=== PATIENT | female | born 1955 | race African-American/Black ===

== ENCOUNTER 2016-12-21 14:32 | Emergency (ER) | payer MEDICAID, OTHER ==
[~2016-12-21] VITALS: Ht 154.9 cm; Wt 40.8 kg
[~2016-12-21 14:32] MED LIST: ACETAMINOPHEN-1 EAC1 ORAL; ALBUTEROL SULF8.5 GM INH; AMBIEN5 MG ORAL; ASPIR 8181 MG ORAL; ATIVAN1 MG ORAL; BACITRACIN1 APPLIC TOPIC; BACTRIM-DS1 EA ORAL; BENAZEPRIL HCL10 MG ORAL; BENAZEPRIL HCL20 MG ORAL; CLINDAMYCIN HC300 MG ORAL; FERROUS SULFAT325 MG ORAL; GUAIFENESIN-DM S5 ML PO; LEVAQUIN750 MG ORAL; LOTENSIN20 MG ORAL; MECLIZINE HCL25 MG ORAL; NKM; NORCO 5-325 TA1 EACH ORAL; PREDNISONE20 MG ORAL; PROTONIX40 MG ORAL; REGLAN5 MG ORAL; TRAMADOL HCL50 MG ORAL; TYLENOL EXTRA500 MG ORAL; ZOFRAN4 M1 ORAL
[2016-12-21] MEDS ORDERED: Morphine Sulfate 4mg/ml Inj IVP ONE (14:45)
[2016-12-21 15:05] VITALS: BP 179/99
[2016-12-21 15:19] LABS: MEAN CORPUSCULAR HEMOGLOBIN 30.7 PG (27.0-31.0); MEAN CORPUSCULAR HGB CONC 32.9 G/DL (32.0-36.0); MEAN CORPUSCULAR VOLUME 93 FL (80-99); MEAN PLATELET VOLUME 11.8 FL (6.5-10.1); PLATELET COUNT 65 K/UL (150-450); RED CELL DISTRIBUTION WIDTH 13.6 % (11.6-14.8); WHITE BLOOD COUNT 4.8 K/UL (4.8-10.8)
[2016-12-21 16:00] LABS: APPEARANCE,URINE CLEAR; KETONES,URINE NEGATIVE (NEGATIVE); LEUKOCYTE ESTERASE ,URINE NEGATIVE (NEGATIVE); NITRITE,URINE NEGATIVE (NEGATIVE); PH,URINE 6 (4.5-8.0); PROTEIN,URINE 1+ (NEGATIVE); UROBILINOGEN,URINE NORMAL MG/DL (0.0-1.0)
[2016-12-21 16:26] LABS: RBC,URINE 0 /HPF (0 - 2); SQUAMOUS EPITHELIAL CELL,UR OCCASIONAL /LPF (NONE/OCC); WBC,URINE 0-2 /HPF (0 - 2)
[2016-12-21 16:37] LABS: BAND NEUTROPHILS % (MANUAL) 0 % (0-8); BASOPHILS % (MANUAL) 1 % (0-2); EOSINOPHILS % (MANUAL) 0 % (0-3); LYMPHOCYTES % (MANUAL) 26 % (20-45); NEUTROPHILS % (MANUAL) 67 % (45-75); NUCLEATED RED BLOOD CELLS 1 /100 WBC; PLATELET CLUMPS 3+; TOTAL CELLS COUNTED 100
[2016-12-21 16:44] LABS: PLATELET ESTIMATE ADEQUATE
--- NOTE | 2016-12-21 16:54 | Emergency Room Report ---
History of Present Illness General Chief Complaint: Abdominal Pain Source: Patient Present Illness HPI 61-year-old female presents ED for abdominal pain. States symptoms started today. Pain is localized to lower abdomen radiating through epigastric area. 7 out of 10. Sharp. No aggravating or leading factors. Denies nausea or vomiting. Denies chest pain or shortness of breath. Denies fevers or chills. Denies sick contacts or recent travel. No other aggravating or relieving factors. Denies any other associated symptoms Allergies: Coded Allergies: PENICILLINS (Unverified Allergy, Severe, 10/20/13) ERYTHROMYCIN BASE (Verified Allergy, Unknown, 12/27/12) IBUPROFEN (Unverified Allergy, Unknown, 07/30/14) KETOROLAC (Verified Allergy, Unknown, 12/27/12) ZOLPIDEM (Unverified Allergy, Unknown, 12/21/16) Patient History Past Medical History: HTN, COPD, GERD Past Surgical History: none Pertinent Family History: none Social History: Denies: alcohol use, drug use, smoking Now: No Immunizations: UTD Reviewed Nursing Documentation: PMH: Agreed, PSxH: Agreed Nursing Documentation-PMH Past Medical History: No History, Except For Hx Hypertension: Yes Hx COPD: Yes Hx Gastrointestinal Problems: Yes - ulcers gastritis Hx Neurological Problems: Yes - fibromyalgia Review of Systems All Other Systems: negative except mentioned in HPI Physical Exam Vital Signs Date Time Temp Pulse Resp B/P Pulse Ox O2 Delivery O2 Flow Rate FiO2 12/21/16 14:27 98.4 80 18 145/105 98 Room Air Sp02 EP Interpretation: reviewed, normal General Appearance: no apparent distress, alert, GCS 15, non-toxic, thin Head: normocephalic Eyes: bilateral eye PERRL, bilateral eye normal inspection ENT: normal ENT inspection Neck: normal inspection Respiratory: chest non-tender, lungs clear, normal breath sounds, speaking full sentences Cardiovascular #1: regular rate, rhythm, no edema Gastrointestinal: normal bowel sounds, soft, non-distended, no guarding, no rebound, tenderness - lower abdomen, epigastric Rectal: deferred Genitourinary: no CVA tenderness Musculoskeletal: normal inspection Neurologic: alert, oriented x3, responsive, motor strength/tone normal, sensory intact, speech normal Psychiatric: normal inspection Skin: normal inspection Lymphatic: normal inspection Medical Decision Making Diagnostic Impression: Primary Impression: Gastritis Qualified Codes: K29.50 - Unspecified chronic gastritis without bleeding Additional Impression: Chronic pain Qualified Codes: G89.29 - Other chronic pain ER Course Hospital Course 61-year-old F presents to ED with epigastric pain and lower abd pain Differential diagnosis includes-appendicitis, cholecystitis, small bowel obstruction, gastritis, Clinical course Patient placed on stretcher. After initial history and physical I ordered labs , IV fluids, pain medications, pepcid and CT scan Labs - no leukocytosis, electrolytes ok, LFTs normal, UA unremarkable CT scan shows no acute pathology Upon reassessment, patient states pain has improved. Patient has history of gastritis. Given improvement in symptoms and lack of acute findings, I believe patient can be safely discharged to home. Patient agrees with plan I feel this is a highly complex case requiring extensive working including EKG/ Rhythm strip, Xray/CT/US, Blood/urine lab work, repeat exams while in ED, and administration of strong opiates/narcotics for pain control, admission to hospital or close patient follow up. Diagnosis - gastritis, chronic pain Stable and discharged to home with Rx Zofran, Protonix. Followup with PMD. Return to ED if symptoms recur or worsen Labs Test 12/21/16 14:57 12/21/16 15:09 12/21/16 16:26 White Blood Count 4.8 K/UL (4.8-10.8) Red Blood Count 4.90 M/UL (4.20-5.40) Hemoglobin 15.0 G/DL (12.0-16.0) Hematocrit 45.6 % (37.0-47.0) Mean Corpuscular Volume 93 FL (80-99) Mean Corpuscular Hemoglobin 30.7 PG (27.0-31.0) Mean Corpuscular Hemoglobin Concent 32.9 G/DL (32.0-36.0) Red Cell Distribution Width 13.6 % (11.6-14.8) Platelet Count 65 K/UL (150-450) Mean Platelet Volume 11.8 FL (6.5-10.1) Neutrophils (%) (Auto) % (45.0-75.0) Lymphocytes (%) (Auto) % (20.0-45.0) Monocytes (%) (Auto) % (1.0-10.0) Eosinophils (%) (Auto) % (0.0-3.0) Basophils (%) (Auto) % (0.0-2.0) Differential Total Cells Counted 100 Neutrophils % (Manual) 67 % (45-75) Lymphocytes % (Manual) 26 % (20-45) Monocytes % (Manual) 6 % (1-10) Eosinophils % (Manual) 0 % (0-3) Basophils % (Manual) 1 % (0-2) Band Neutrophils 0 % (0-8) Nucleated Red Blood Cells 1 /100 WBC Platelet Estimate Adequate Platelet Morphology Clumped Platelets 3+ Red Blood Cell Morphology Normal Urine Color Pale yellow Urine Appearance Clear Urine pH 6 (4.5-8.0) Urine Specific Harvey 1.010 (1.005-1.035) Urine Protein 1+ (NEGATIVE) Urine Glucose (UA) Negative (NEGATIVE) Urine Ketones Negative (NEGATIVE) Urine Occult Blood Negative (NEGATIVE) Urine Nitrite Negative (NEGATIVE) Urine Bilirubin Negative (NEGATIVE) Urine Urobilinogen Normal MG/DL (0.0-1.0) Urine Leukocyte Esterase Negative (NEGATIVE) Urine RBC 0 /HPF (0 - 2) Urine WBC 0-2 /HPF (0 - 2) Urine Squamous Epithelial Cells Occasional /LPF Urine Bacteria None /HPF (NONE) Sodium Level 142 mEQ/L (135-145) Potassium Level 3.3 mEQ/L (3.4-4.9) Chloride Level 104 mEQ/L (98-107) Carbon Dioxide Level 22 mEQ/L (20-30) Anion Gap 16 (5-15) Blood Urea Nitrogen 9 mg/dL (7-23) Creatinine 0.7 mg/dL (0.5-0.9) Estimat Glomerular Filtration Rate > 60 mL/min (>60) Glucose Level 138 mg/dL (74-106) Calcium Level 8.0 mg/dL (8.6-10.2) Total Bilirubin < 0.2 mg/dL (0.0-1.2) Aspartate Amino Transf (AST/SGOT) 27 U/L (5-40) Alanine Aminotransferase (ALT/SGPT) 29 U/L (3-33) Alkaline Phosphatase 62 U/L (35-104) Creatine Kinase MB 2.3 ng/mL (< 3.8) Troponin I < 0.30 ng/mL (<=0.30) Total Protein 6.6 g/dL (6.6-8.7) Albumin 3.7 g/dL (3.5-5.2) Globulin 2.9 g/dL Albumin/Globulin Ratio 1.2 (1.0-2.7) Lipase 39 U/L (< 60) EKG Diagnostic Results Rate: normal Rhythm: NSR ST Segments: no acute changes ASA given to the pt in ED: No Rhythm Strip Diag. Results EP Interpretation: yes Rhythm: NSR, no PVC's, no ectopy CT/MRI/US Diagnostic Results CT/MRI/US Diagnostic Results : Imaging Test Ordered: CT A/P Impression no acute process Last Vital Signs Date Time Temp Pulse Resp B/P Pulse Ox O2 Delivery O2 Flow Rate FiO2 12/21/16 15:43 98.5 12/21/16 15:05 76 14 179/99 99 Room Air Status: improved Disposition: HOME, SELF-CARE Condition: Stable Scripts Ondansetron Odt* (ZOFRAN ODT*) 4 Mg Tab.rapdis 4 MG ORAL Q6H Y for Nausea & Vomiting, #30 TAB 0 Refills Prov: FARIDEH GARZA M.D. 12/21/16 Pantoprazole* (PROTONIX*) 40 Mg Tablet. 40 MG ORAL DAILY, #30 TAB Prov: FARIDEH GARZA M.D. 12/21/16 FARIDEH GARZA M.D. Dec 21, 2016 16:54
[2016-12-21] MEDS ORDERED: Famotidine 20 MG/ 2ML VIAL IVP ONE (17:00)
[2016-12-21 17:04] LABS: TROPONIN I < 0.30 ng/mL (<=0.30)
[2016-12-21 17:05] LABS: ALANINE AMINOTRANSFERASE 29 U/L (3-33); ALBUMIN/GLOBULIN RATIO 1.2 (1.0-2.7); ANION GAP 16 (5-15); ASPARTATE AMINO TRANSFERASE 27 U/L (5-40); CARBON DIOXIDE 22 mEQ/L (20-30); CHLORIDE 104 mEQ/L (98-107); CREATININE 0.7 mg/dL (0.5-0.9); GLOMERULAR FILTRATION RATE > 60 mL/min (>60); HEMOLYSIS 6; LIPASE 39 U/L (< 60); POTASSIUM 3.3 mEQ/L (3.4-4.9); SODIUM 142 mEQ/L (135-145); TOTAL PROTEIN 6.6 g/dL (6.6-8.7)
[2016-12-21 17:06] VITALS: BP 179/98
[2016-12-21 17:15] LABS: CKMB 2.3 ng/mL (< 3.8)
[2016-12-21] MEDS ORDERED: ZOFRAN ODT4 MG ORAL (18:15)
[2016-12-21] MEDS ORDERED: PROTONIX40 MG ORAL (18:15)
[2016-12-21 18:31] VITALS: BP 149/88
--- NOTE | 2016-12-22 14:22 | Diagnostic Imaging Report ---
Clinical Indication: Epigastric and lower abdominal pain Technique: Patient given oral contrast. IV administration nonionic contrast. Venous phase spiral acquisition obtained through the abdomen and pelvis. Multiplanar reconstructions were generated. Total dose length product 520 mGycm. CTDIvol(s) lung mGy. Dose reduction achieved using automated exposure control Comparison: 04/24/2007 Findings: What might be a normal appendix is equivocally identified, best seen on the coronal images. No findings to suggest acute appendicitis are evident. No evidence of diverticulosis or diverticulitis. Oral contrast does traverse the entirety of the small bowel, and is seen as far distally the distal transverse colon. No small bowel distention. No small bowel wall thickening. No free or loculated intraperitoneal air or fluid is evident. The distal esophagus, stomach, duodenum are unremarkable. The gallbladder is unremarkable. There is mild ectasia of the common bile duct, which measures 7 mm diameter. This is unchanged. The liver, pancreas, spleen, are unremarkable. The right kidney demonstrates an interpolar region cysts as well as subcentimeter low-attenuation lesions which are too small to characterize. There is some scarring of the right kidney. Apparent areas of abnormal perfusion in the both kidneys may just be related to the phase of the exam, although areas of focal nephritis not excludable. No retroperitoneal or mesenteric mass or adenopathy. No pelvic mass or adenopathy. The bladder is distended. Uterus and adnexal structures are unremarkable. There is atelectasis or scarring at the right lung base. The bones demonstrate progressive degenerative changes at the lumbosacral junction as well as sacral nerve root sleeve cysts Impression: No acute process Distended bladder, urinary retention or obstruction not completely excludable. Questionable abnormal perfusion in the the kidneys, most likely artifactual, process such as nephritis not excludable. Correlate with clinical findings Mild ectasia of the common bile duct, unchanged from earlier study of 2006, likely baseline for this patient. Correlate with liver function tests Right renal cyst. Right renal subcentimeter low-attenuation lesions which are too small to characterize, most likely benign simple cysts. No further followup necessary Other findings as noted, including renal cortical scarring, right basilar atelectasis, degenerative spondylosis, sacral nerve root sleeve cysts This agrees with the preliminary interpretation provided overnight by Dr. Henriquez The CT scanner at [facility] is accredited by the [employer] and the scans are performed using protocols designed to limit radiation exposure to as low as reasonably achievable to attain images of sufficient resolution adequate for diagnostic evaluation.
--- NOTE | 2016-12-26 22:44 | Cardiology Report ---
APPROVED REPORT EKG Measurement Heart [id number] Normal sinus rhythm Normal ECG
== END 2016-12-21 18:31 | disposition home or self-care (01) ==
LOC: EDBD 14:32 → EMR 15:01
DX: K29.70 Gastritis, unspecified, without bleeding (principal); G89.29 Other chronic pain; K21.9 Gastro-esophageal reflux disease without esophagitis; J44.9 Chronic obstructive pulmonary disease, unspecified; I10 Essential (primary) hypertension; Z88.0 Allergy status to penicillin; Z88.6 Allergy status to analgesic agent; Z88.8 Allergy status to other drugs, medicaments and biological substances; N28.1 Cyst of kidney, acquired
CPT/HCPCS: 36415; 74177; 80053; 81003; 82553; 83690; 84484; 85007; 85025; 93005; 96360; 96374; 96375; 99284; J2270; J2405; Q9967; S0028

== ENCOUNTER 2017-02-22 20:22 | Emergency (ER) | payer MEDICAID ==
[~2017-02-22] VITALS: Ht 157.5 cm; Wt 43.1 kg
[~2017-02-22 20:22] MED LIST changes: +ZOFRAN ODT4 MG ORAL
--- NOTE | 2017-02-22 21:03 | Emergency Room Report ---
History of Present Illness General Chief Complaint: Abnormal Labs Source: Patient Present Illness HPI [id number] walk-in with "my plasma is low." Patient was at [facility]'s Dr Licona yesterday, was told "you need to immediately go to ER because your plasma is low " and "dont fall or bump into anything." States never needed platelet transfusion in past. Has had blood transfusion for known chronic anemia before. Otherwise denies chest pain, SOB, dizziness, weakness, headache, trauma. Allergies: Coded Allergies: ERYTHROMYCIN BASE (Verified Allergy, Unknown, 02/22/17) IBUPROFEN (Unverified Allergy, Unknown, 02/22/17) KETOROLAC (Verified Allergy, Unknown, 02/22/17) ZOLPIDEM (Unverified Allergy, Unknown, 02/22/17) Patient History Past Medical History: other - anemia Past Surgical History: none Pertinent Family History: none Social History: Denies: alcohol use, drug use, smoking Last Menstrual Period: n/a Now: No Immunizations: UTD Reviewed Nursing Documentation: PMH: Agreed, PSxH: Agreed Nursing Documentation-PMH Hx Cardiac Problems: Yes - CHF Hx Hypertension: Yes Hx COPD: Yes - spon. pneumothorax x2 Hx Gastrointestinal Problems: Yes - ulcers gastritis Hx Neurological Problems: Yes - fibromyalgia, neuropathy Review of Systems All Other Systems: negative except mentioned in HPI Physical Exam Vital Signs Date Time Temp Pulse Resp B/P Pulse Ox O2 Delivery O2 Flow Rate FiO2 02/22/17 20:25 98.8 78 16 149/95 97 Room Air Sp02 EP Interpretation: reviewed, normal General Appearance: normal inspection, well appearing, no apparent distress, alert, GCS 15, non-toxic Head: normocephalic, atraumatic Eyes: bilateral eye EOMI, bilateral eye PERRL ENT: normal ENT inspection, hearing grossly normal, normal voice Neck: normal inspection, full range of motion, supple, no bony tend Respiratory: normal inspection, lungs clear, normal breath sounds, no respiratory distress, no retraction, no wheezing Cardiovascular #1: regular rate, rhythm, no edema Gastrointestinal: normal inspection, normal bowel sounds, non tender, soft, no guarding, no hernia Genitourinary: no CVA tenderness Musculoskeletal: normal inspection, back normal, normal range of motion, Ivan' s Sign negative Neurologic: normal inspection, alert, oriented x3, responsive, [employer] III-XII nml as tested, motor strength/tone normal, speech normal Psychiatric: normal inspection, judgement/insight normal, mood/affect normal Skin: normal inspection, normal color, no rash Lymphatic: normal inspection Medical Decision Making Diagnostic Impression: Primary Impression: Abnormal laboratory test result Additional Impression: Thrombocytopenia ER Course Thrombocytopenia - 55. Was 65 in December. - Per med list, patient STILL taking Protonix and ASA which can contribute. Also has Hep C. - No active bleeding. - No other cell lines affected. Not septic - Advised to STOP offending agents, followup with PMD for recheck, Hematology referral Last Vital Signs Date Time Temp Pulse Resp B/P Pulse Ox O2 Delivery O2 Flow Rate FiO2 02/22/17 20:25 98.8 78 16 149/95 97 Room Air Status: improved Disposition: HOME, SELF-CARE NELIA GUZMAN M.D. Feb 22, 2017 21:03
[2017-02-22 21:19] LABS: MEAN CORPUSCULAR HEMOGLOBIN 29.9 PG (27.0-31.0); MEAN CORPUSCULAR HGB CONC 32.5 G/DL (32.0-36.0); MEAN CORPUSCULAR VOLUME 92 FL (80-99); MEAN PLATELET VOLUME 15.4 FL (6.5-10.1); PLATELET COUNT 55 K/UL (150-450); RED BLOOD COUNT 4.28 M/UL (4.20-5.40); RED CELL DISTRIBUTION WIDTH 12.8 % (11.6-14.8); WHITE BLOOD COUNT 4.7 K/UL (4.8-10.8)
[2017-02-22 21:25] LABS: ALANINE AMINOTRANSFERASE 24 U/L (3-33); ALBUMIN/GLOBULIN RATIO 1.1 (1.0-2.7); ANION GAP 15 (5-15); ASPARTATE AMINO TRANSFERASE 23 U/L (5-40); CALCIUM 8.6 mg/dL (8.6-10.2); CARBON DIOXIDE 23 mEQ/L (20-30); CHLORIDE 103 mEQ/L (98-107); CREATININE 0.9 mg/dL (0.5-0.9); GLOMERULAR FILTRATION RATE > 60 mL/min (>60); HEMOLYSIS 38; POTASSIUM 3.6 mEQ/L (3.4-4.9); SODIUM 141 mEQ/L (135-145)
[2017-02-22 22:10] VITALS: BP 136/89
[2017-02-22 22:37] LABS: BAND NEUTROPHILS % (MANUAL) 5 % (0-8); BASOPHILS % (MANUAL) 2 % (0-2); EOSINOPHILS % (MANUAL) 4 % (0-3); LYMPHOCYTES % (MANUAL) 43 % (20-45); NEUTROPHILS % (MANUAL) 37 % (45-75); TOTAL CELLS COUNTED 100
[2017-02-22 22:39] LABS: PLATELET CLUMPS 1+
[2017-02-22 22:40] LABS: PLATELET ESTIMATE DECREASED
== END 2017-02-22 23:00 | disposition home or self-care (01) ==
LOC: EMR 22:25
DX: D69.6 Thrombocytopenia, unspecified (principal); I10 Essential (primary) hypertension; J44.9 Chronic obstructive pulmonary disease, unspecified; G62.9 Polyneuropathy, unspecified; Z88.6 Allergy status to analgesic agent; Z88.8 Allergy status to other drugs, medicaments and biological substances; B19.20 Unspecified viral hepatitis C without hepatic coma
CPT/HCPCS: 36415; 80053; 85007; 85025; 86850; 86900; 86901; 99283

== ENCOUNTER 2017-03-16 10:34 | Emergency (ER) | payer MEDICAID ==
[~2017-03-16] VITALS: Ht 154.9 cm; Wt 52.2 kg
[2017-03-16] MEDS ORDERED: LORazepam Inj 2mg/ml 1ml IV ONE (10:45)
[2017-03-16] MEDS ORDERED: Metoclopramide 10mg/2ml Inj IVP ONE (10:45)
[2017-03-16] MEDS ORDERED: DiphenhydrAMINE 50mg/ml Inj IVP ONE (10:45)
[2017-03-16 10:48] VITALS: BP 160/107
[2017-03-16 11:15] LABS: MEAN CORPUSCULAR HEMOGLOBIN 31.4 PG (27.0-31.0); MEAN CORPUSCULAR VOLUME 95 FL (80-99); MEAN PLATELET VOLUME 11.6 FL (6.5-10.1); RED CELL DISTRIBUTION WIDTH 13.3 % (11.6-14.8); WHITE BLOOD COUNT 4.7 K/UL (4.8-10.8)
[2017-03-16 11:25] LABS: PROTHROMBIN TIME 10.5 SEC (9.30-11.50)
[2017-03-16 11:28] LABS: TROPONIN I < 0.30 ng/mL (<=0.30)
[2017-03-16 11:32] LABS: ALANINE AMINOTRANSFERASE 38 U/L (3-33); ALBUMIN/GLOBULIN RATIO 1.2 (1.0-2.7); ANION GAP 13 (5-15); ASPARTATE AMINO TRANSFERASE 30 U/L (5-40); CALCIUM 9.2 mg/dL (8.6-10.2); CARBON DIOXIDE 24 mEQ/L (20-30); CHLORIDE 105 mEQ/L (98-107); CREATININE 0.7 mg/dL (0.5-0.9); GLOMERULAR FILTRATION RATE > 60 mL/min (>60); HEMOLYSIS 5; POTASSIUM 3.4 mEQ/L (3.4-4.9); SODIUM 142 mEQ/L (135-145); TOTAL PROTEIN 7.7 g/dL (6.6-8.7)
[2017-03-16 11:50] LABS: PLATELET COUNT 260 K/UL (150-450)
[2017-03-16 11:53] LABS: LYMPHOCYTES % (MANUAL) 25 % (20-45); NEUTROPHILS % (MANUAL) 67 % (45-75); TOTAL CELLS COUNTED 100
[2017-03-16 11:54] LABS: BAND NEUTROPHILS % (MANUAL) 0 % (0-8); BASOPHILS % (MANUAL) 0 % (0-2); EOSINOPHILS % (MANUAL) 0 % (0-3); PLATELET ESTIMATE ADEQUATE; PLATELET MORPHOLOGY NORMAL
[2017-03-16 12:44] LABS: APPEARANCE,URINE CLEAR; KETONES,URINE NEGATIVE (NEGATIVE); LEUKOCYTE ESTERASE ,URINE 1+ (NEGATIVE); NITRITE,URINE NEGATIVE (NEGATIVE); PH,URINE 7 (4.5-8.0); PROTEIN,URINE NEGATIVE (NEGATIVE); UROBILINOGEN,URINE NORMAL MG/DL (0.0-1.0)
[2017-03-16 13:05] LABS: RBC,URINE 0-2 /HPF (0 - 2)
[2017-03-16 13:06] LABS: BACTERIA,URINE FEW /HPF; SQUAMOUS EPITHELIAL CELL,UR FEW /LPF (NONE/OCC)
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
[2017-03-16] MEDS ORDERED: TYLENOL325 MG ORAL (13:32)
[2017-03-16] MEDS ORDERED: NORCO 5-325 TA1 EACH ORAL (13:32)
[2017-03-16 13:36] VITALS: BP 150/95
[2017-03-16 13:59] VITALS: BP 150/95
--- NOTE | 2017-03-16 15:10 | Diagnostic Imaging Report ---
Indication: Chest pain Comparison: 11/25/15 A single view chest radiograph was obtained. Findings: Faint interstitial opacity is noted in the right upper lobe. This is most likely an area of scarring as it is noted on multiple prior studies. Heart size is normal. Pulmonary vascularity is within normal limits. The bones are osteopenic. Impression: No acute disease
--- NOTE | 2017-03-19 17:58 | Cardiology Report ---
APPROVED REPORT EKG Measurement Heart [id number] Normal sinus rhythm Possible Left atrial enlargement Left posterior fascicular block Abnormal ECG
== END 2017-03-16 13:45 | disposition home or self-care (01) ==
LOC: EDBD 10:34 → EMR 10:50
DX: R07.89 Other chest pain (principal); M79.7 Fibromyalgia; G89.29 Other chronic pain; I10 Essential (primary) hypertension; J45.909 Unspecified asthma, uncomplicated; Z88.1 Allergy status to other antibiotic agents; Z88.6 Allergy status to analgesic agent; Z88.8 Allergy status to other drugs, medicaments and biological substances; K05.10 Chronic gingivitis, plaque induced; I25.10 Atherosclerotic heart disease of native coronary artery without angina pectoris
CPT/HCPCS: 36415; 71010; 80053; 80300; 81003; 82550; 83880; 84484; 85007; 85025; 85610; 93005; 99284; J1200; J2765

== ENCOUNTER 2017-04-22 22:01 | Emergency (ER) | payer MEDICAID ==
[~2017-04-22] VITALS: Ht 154.9 cm; Wt 43.1 kg
[~2017-04-22 22:01] MED LIST changes: +TYLENOL325 MG ORAL
[2017-04-22] MEDS ORDERED: Acetaminophen 500mg (ES) tab ORAL ONE (22:45)
[2017-04-22] MEDS ORDERED: TRAMADOL HCL50 MG ORAL (23:21)
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
[2017-04-22 23:59] VITALS: BP 181/110
--- NOTE | 2017-04-23 10:23 | Diagnostic Imaging Report ---
Indication: Pain Findings: 3 views of the left elbow were obtained. No acute fractures, malalignment, erosions or periostitis are identified. Bone mineralization is within normal limits. Soft tissues are unremarkable. Impression: Negative examination of the elbow.
== END 2017-04-22 23:59 | disposition home or self-care (01) ==
LOC: EMR 22:50
DX: S50.02XA Contusion of left elbow, initial encounter (principal); I10 Essential (primary) hypertension; Z88.6 Allergy status to analgesic agent; Z88.8 Allergy status to other drugs, medicaments and biological substances; F17.200 Nicotine dependence, unspecified, uncomplicated; M79.7 Fibromyalgia; G62.9 Polyneuropathy, unspecified; V09.9XXA Pedestrian injured in unspecified transport accident, initial encounter; Y93.9 Activity, unspecified; Y92.9 Unspecified place or not applicable
CPT/HCPCS: 99283

== ENCOUNTER 2017-05-05 11:18 | Emergency (ER) | payer MEDICAID ==
[~2017-05-05] VITALS: Ht 162.6 cm; Wt 59.0 kg
[2017-05-05 11:47] VITALS: BP 204/149
[2017-05-05] MEDS ORDERED: Acetaminophen 500mg (ES) tab ORAL ONE (12:00)
[2017-05-05] MEDS ORDERED: Nitroglycerin Subl 0.4mg tab (Bottle Of 25) SL PRN (12:00)
[2017-05-05 12:05] LABS: MEAN CORPUSCULAR HEMOGLOBIN 31.1 PG (27.0-31.0); MEAN CORPUSCULAR HGB CONC 33.2 G/DL (32.0-36.0); MEAN CORPUSCULAR VOLUME 94 FL (80-99); MEAN PLATELET VOLUME 15.2 FL (6.5-10.1); RED BLOOD COUNT 3.97 M/UL (4.20-5.40); RED CELL DISTRIBUTION WIDTH 12.7 % (11.6-14.8); WHITE BLOOD COUNT 4.4 K/UL (4.8-10.8)
[2017-05-05 12:08] VITALS: BP 160/92
[2017-05-05 12:19] LABS: ALANINE AMINOTRANSFERASE 18 U/L (3-33); ALBUMIN/GLOBULIN RATIO 1.1 (1.0-2.7); ANION GAP 11 (5-15); ASPARTATE AMINO TRANSFERASE 21 U/L (5-40); CALCIUM 8.8 mg/dL (8.6-10.2); CARBON DIOXIDE 24 mEQ/L (20-30); CHLORIDE 106 mEQ/L (98-107); CREATININE 0.6 mg/dL (0.5-0.9); GLOMERULAR FILTRATION RATE > 60 mL/min (>60); HEMOLYSIS 45; POTASSIUM 4.4 mEQ/L (3.4-4.9); SODIUM 141 mEQ/L (135-145); TOTAL PROTEIN 7.1 g/dL (6.6-8.7); TROPONIN I < 0.30 ng/mL (<=0.30)
[2017-05-05 12:22] LABS: LYMPHOCYTES % (MANUAL) 26 % (20-45); NEUTROPHILS % (MANUAL) 66 % (45-75); TOTAL CELLS COUNTED 100
--- NOTE | 2017-05-05 12:25 | Diagnostic Imaging Report ---
Indication: Chest pain Comparison: 03/16/2017 A single view chest radiograph was obtained. Findings: Minimal patchy reticular densities noted in the right upper lobe unchanged. Heart size is within normal limits. No pleural effusion seen. Bones are osteopenic. Impression: No change. No acute disease
[2017-05-05 12:26] LABS: BAND NEUTROPHILS % (MANUAL) 0 % (0-8); BASOPHILS % (MANUAL) 0 % (0-2); EOSINOPHILS % (MANUAL) 0 % (0-3); PLATELET ESTIMATE ADEQUATE
[2017-05-05 12:27] LABS: PLATELET CLUMPS 2+
[2017-05-05 12:29] LABS: CKMB 1.9 ng/mL (< 3.8)
[2017-05-05 12:30] LABS: PLATELET COUNT 200 K/UL (150-450)
[2017-05-05 12:35] VITALS: BP 147/89
[2017-05-05] MEDS ORDERED: Morphine Sulfate 4mg/ml Inj IVP ONE (13:00)
[2017-05-05] MEDS ORDERED: Aspirin Baby 81mg ORAL ONE (13:30)
[2017-05-05 13:34] LABS: APPEARANCE,URINE CLEAR; KETONES,URINE NEGATIVE (NEGATIVE); LEUKOCYTE ESTERASE ,URINE 1+ (NEGATIVE); NITRITE,URINE NEGATIVE (NEGATIVE); PH,URINE 7 (4.5-8.0); PROTEIN,URINE NEGATIVE (NEGATIVE); UROBILINOGEN,URINE 1 MG/DL (0.0-1.0)
[2017-05-05 13:44] LABS: RBC,URINE 0-2 /HPF (0 - 2); SQUAMOUS EPITHELIAL CELL,UR FEW /LPF (NONE/OCC)
[2017-05-05 13:45] LABS: BACTERIA,URINE FEW /HPF; MUCUS,URINE OCCASIONAL /LPF (NONE/OCC)
--- NOTE | 2017-05-05 14:28 | Emergency Room Report ---
History of Present Illness General Chief Complaint: Chest Pain Source: Patient Present Illness HPI 62-year-old female presents to ED complaining of chest pain. Patient brought in by EMS. States chest pain started this morning. Pain is a 9/10, midsternal , sharp, nonradiating. Patient is hypertensive in triage. Denies shortness of breath. Patient notes history of fibromyalgia and chronic body pain but denies other pain at this time. No other aggravating relieving factors. Denies any other associated symptoms Allergies: Coded Allergies: ERYTHROMYCIN BASE (Verified Allergy, Unknown, 02/22/17) IBUPROFEN (Unverified Allergy, Unknown, 02/22/17) KETOROLAC (Verified Allergy, Unknown, 02/22/17) ZOLPIDEM (Unverified Allergy, Unknown, 02/22/17) Patient History Past Medical History: HTN, asthma, ulcer, GERD Social History: Denies: smoking, alcohol use, drug use Now: No Immunizations: UTD Reviewed Nursing Documentation: PMH: Agreed, PSxH: Agreed Nursing Documentation-PMH Hx Cardiac Problems: Yes - Artherosclerosis Hx Hypertension: Yes Hx Asthma: Yes Hx Gastrointestinal Problems: Yes - ulcers gastritis Hx Neurological Problems: Yes - fibromyalgia, neuropathy Review of Systems All Other Systems: negative except mentioned in HPI Physical Exam Vital Signs Date Time Temp Pulse Resp B/P (MAP) Pulse Ox O2 Delivery O2 Flow Rate FiO2 05/05/17 11:44 120 19 Nasal Cannula 2.0 05/05/17 11:47 101.3 204/149 100 Sp02 EP Interpretation: reviewed, normal General Appearance: alert, GCS 15, non-toxic, mild distress Head: normocephalic, atraumatic Eyes: bilateral eye normal inspection, bilateral eye PERRL ENT: hearing grossly normal, normal pharynx, no angioedema, normal voice Neck: full range of motion, supple/symm/no masses Respiratory: chest non-tender, lungs clear, normal breath sounds, speaking full sentences Cardiovascular #1: regular rate, rhythm, no edema Cardiovascular #2: 2+ carotid (R), 2+ carotid (L), 2+ radial (R), 2+ radial (L) , 2+ dorsalis pedis (R), 2+ dorsalis pedis (L) Gastrointestinal: normal bowel sounds, non tender, soft, non-distended, no guarding, no rebound Rectal: deferred Genitourinary: normal inspection, no CVA tenderness Musculoskeletal: back normal, gait/station normal, normal range of motion, non- tender Neurologic: alert, oriented x3, responsive, motor strength/tone normal, sensory intact, speech normal Psychiatric: judgement/insight normal, memory normal, mood/affect normal, no suicidal/homicidal ideation Reflexes: 3+ bicep (R), 3+ bicep (L), 3+ tricep (R), 3+ tricep (L), 3+ knee (R) , 3+ knee (L) Skin: normal color, no rash, warm/dry, well hydrated Lymphatic: no adenopathy Procedures Critical Care Time Critical Care Time i. I feel this is a highly complex case requiring extensive working including EKG/Rhythm strip, Xray/CT/US, Blood/urine lab work, repeat exams while in ED, and administration of strong opiates/narcotics for pain control, admission to hospital or close patient follow up. Total time: 30 min bedside evaluation and treatment excludes procedures (EKG). Reason for critical care: chest pain, hypertensive urgency Possible complications: hypotension, hypertension, OR, shock, arrhythmias, metabolic acidosis, end organ damage, respiratory failure. Interventions: Labs, EKG, chest x-ray. Nitroglycerin. Tylenol. Aspirin. Course: Patient brought in for chest pain. Hypertensive. Patient given nitroglycerin x3 with blood pressure improved. Troponins negative. EKG shows no ischemic changes. Aspirin given Consultations: nursing staff, EMS, family Performed by: Dr Padgett Tolerated well condition = serious j. because of unstable vital signs this patient had a condition that could potentially threaten life or limb. I feel this is a critical patient who required my full attention while patient was considered critical. Total Critical Care Time excluding procedures was greater than 35 minutes Medical Decision Making Diagnostic Impression: Primary Impression: ACS (acute coronary syndrome) Additional Impression: Hypertensive urgency ER Course Hospital Course 62-year-old female presents ED complaining of chest pain, hypertensive Differential diagnoses include: OR/unstable angina, contusion, muscle strain, PTX, rib fracture Clinical course Patient placed on stretcher. on portfolio consultant. After initial history and physical I ordered labs, EKG, chest x-ray, NTG labs reviewed- no leukocytosis, hb/hct stable, electrolytes ok, trop negative, Utox + THC and opiates EKG - NSR, no acute ischemic changes interpreted by me Chest x-ray- no acute process On reassessment blood pressure is improved. Given aspirin. Given morphine for continued pain because of insurance patient will be transferred I. I feel this is a highly complex case requiring extensive working including EKG/Rhythm strip, Xray/CT/US, Blood/urine lab work, repeat exams while in ED, and administration of strong opiates/narcotics for pain control, admission to hospital or close patient follow up. Diagnosis - ACS, hypertensive urgency admitted to telemetry in serious condition Labs Test 05/05/17 11:35 05/05/17 13:21 White Blood Count 4.4 K/UL (4.8-10.8) Red Blood Count 3.97 M/UL (4.20-5.40) Hemoglobin 12.4 G/DL (12.0-16.0) Hematocrit 37.3 % (37.0-47.0) Mean Corpuscular Volume 94 FL (80-99) Mean Corpuscular Hemoglobin 31.1 PG (27.0-31.0) Mean Corpuscular Hemoglobin Concent 33.2 G/DL (32.0-36.0) Red Cell Distribution Width 12.7 % (11.6-14.8) Platelet Count 200 K/UL (150-450) Mean Platelet Volume 15.2 FL (6.5-10.1) Neutrophils (%) (Auto) % (45.0-75.0) Lymphocytes (%) (Auto) % (20.0-45.0) Monocytes (%) (Auto) % (1.0-10.0) Eosinophils (%) (Auto) % (0.0-3.0) Basophils (%) (Auto) % (0.0-2.0) Differential Total Cells Counted 100 Neutrophils % (Manual) 66 % (45-75) Lymphocytes % (Manual) 26 % (20-45) Monocytes % (Manual) 8 % (1-10) Eosinophils % (Manual) 0 % (0-3) Basophils % (Manual) 0 % (0-2) Band Neutrophils 0 % (0-8) Platelet Estimate Adequate Platelet Morphology Clumped Platelets 2+ Red Blood Cell Morphology Normal Sodium Level 141 mEQ/L (135-145) Potassium Level 4.4 mEQ/L (3.4-4.9) Chloride Level 106 mEQ/L (98-107) Carbon Dioxide Level 24 mEQ/L (20-30) Anion Gap 11 (5-15) Blood Urea Nitrogen 8 mg/dL (7-23) Creatinine 0.6 mg/dL (0.5-0.9) Estimat Glomerular Filtration Rate > 60 mL/min (>60) Glucose Level 110 mg/dL (74-106) Lactic Acid Level 1.60 mmol/L (0.66-2.22) Calcium Level 8.8 mg/dL (8.6-10.2) Total Bilirubin 0.3 mg/dL (0.0-1.2) Aspartate Amino Transf (AST/SGOT) 21 U/L (5-40) Alanine Aminotransferase (ALT/SGPT) 18 U/L (3-33) Alkaline Phosphatase 73 U/L (35-104) Total Creatine Kinase 55 U/L (26-140) Creatine Kinase MB 1.9 ng/mL (< 3.8) Creatine Kinase MB Relative Index 3.4 Troponin I < 0.30 ng/mL (<=0.30) Pro-B-Type Natriuretic Peptide 237 pg/mL (0-125) Total Protein 7.1 g/dL (6.6-8.7) Albumin 3.8 g/dL (3.5-5.2) Globulin 3.3 g/dL Albumin/Globulin Ratio 1.1 (1.0-2.7) Urine Color Pale yellow Urine Appearance Clear Urine pH 7 (4.5-8.0) Urine Specific [place] 1.010 (1.005-1.035) Urine Protein Negative (NEGATIVE) Urine Glucose (UA) Negative (NEGATIVE) Urine Ketones Negative (NEGATIVE) Urine Occult Blood Negative (NEGATIVE) Urine Nitrite Negative (NEGATIVE) Urine Bilirubin Negative (NEGATIVE) Urine Urobilinogen 1 MG/DL (0.0-1.0) Urine Leukocyte Esterase 1+ (NEGATIVE) Urine RBC 0-2 /HPF (0 - 2) Urine WBC 2-4 /HPF (0 - 2) Urine Squamous Epithelial Cells Few /LPF (NONE/OCC) Urine Bacteria Few /HPF (NONE) Urine Mucus Occasional /LPF Urine Opiates Screen Positive (NEGATIVE) Urine Barbiturates Screen Negative (NEGATIVE) Phencyclidine (PCP) Screen Negative (NEGATIVE) Urine Amphetamines Screen Negative (NEGATIVE) Urine Benzodiazepines Screen Negative (NEGATIVE) Urine Cocaine Screen Negative (NEGATIVE) Urine Marijuana (THC) Screen Positive (NEGATIVE) EKG Diagnostic Results Rate: normal Rhythm: NSR ST Segments: no acute changes ASA given to the pt in ED: Yes Rhythm Strip Diag. Results EP Interpretation: yes Rhythm: NSR, no PVC's, no ectopy Chest X-Ray Diagnostic Results Chest X-Ray Diagnostic Results : Chest X-Ray Ordered: Yes # of Views/Limited/Complete: 1 View Indication: Chest Pain EP Interpretation: Yes Interpretation: no consolidation, no effusion, no pneumothorax, no acute cardiopulmonary disease Impression: No acute disease Interpreting ER Provider: Electronically signed by Cmapbell Padgett MD Last Vital Signs Date Time Temp Pulse Resp B/P (MAP) Pulse Ox O2 Delivery O2 Flow Rate FiO2 05/05/17 12:35 70 18 147/89 100 05/05/17 11:48 101.3 Nasal Cannula 2.0 Status: improved Disposition: [facility]FER [facility] HOSP Condition: Serious Referrals: [facility],REFERRING (PCP) CAMPBELL PADGETT M.D. May 05, 2017 14:28
[2017-05-05 15:04] VITALS: BP 133/70
[2017-05-05 16:26] VITALS: BP 137/74
[2017-05-05 16:27] VITALS: BP 137/74
--- NOTE | 2017-05-06 06:00 | Consultation ---
DATE OF CONSULTATION: 05/05/2017 INTERNAL MEDICINE EVALUATION HISTORY OF PRESENT ILLNESS: This is a 62-year-old female with a history of hypertension. She came to the hospital with chest pain. She was seen and worked up by the ER physician. Initially, it was felt that she was markedly hypertensive with hypertensive urgency and not stable for transfer, however, after receiving antihypertensive, pressure is now 170/90 and she did not transfer. The patient also refused to receive morphine for pain control. PAST MEDICAL HISTORY: Hypertension only. The patient denies any significant past history. PAST SURGICAL HISTORY: None reported. ALLERGIES: To ibuprofen, erythromycin, Ambien, and Toradol. REVIEW OF SYSTEMS: Noncontributory. PHYSICAL EXAMINATION: GENERAL: Reveals elderly female. HEENT: Unremarkable. CHEST: Clear breath sounds. ABDOMEN: Soft. EXTREMITIES: There is no edema. NEUROLOGIC: Nonfocal. Blood pressure earlier noted to be 204/150, at this point is 170/90. LABORATORY DATA: Lab testing shows normal CBC. Platelet count 200,000. Potassium 4.4. IMPRESSION: 1. Hypertensive urgency. 2. As per discussion, the patient is stable for transfer. Discussed with the ER physician. We will arrange transfer. Kash George M.D. DR: FRANKLIN JOB#: [id number] CC:
--- NOTE | 2017-05-09 15:47 | Cardiology Report ---
APPROVED REPORT EKG Measurement Heart [id number] Sinus bradycardia Low voltage QRS Cannot rule out Anterior infarct, age undetermined Abnormal ECG
== END 2017-05-05 16:29 | disposition short-term general hospital (02) ==
LOC: EDBD 11:18 → EMR 12:10
DX: I24.9 Acute ischemic heart disease, unspecified (principal); I16.0 Hypertensive urgency; M79.7 Fibromyalgia; Z88.6 Allergy status to analgesic agent; Z88.8 Allergy status to other drugs, medicaments and biological substances; K21.9 Gastro-esophageal reflux disease without esophagitis; M85.80 Other specified disorders of bone density and structure, unspecified site
CPT/HCPCS: 36415; 71010; 80053; 80300; 81003; 82550; 82553; 83605; 83880; 84484; 85007; 85025; 87040; 93005; 96360; 96374; 96375; 99285; J2270

== ENCOUNTER 2017-07-11 21:58 | Emergency (ER) | payer MEDICAID ==
[~2017-07-11] VITALS: Ht 154.9 cm; Wt 38.6 kg
[2017-07-11 22:12] VITALS: BP 162/106
[2017-07-11] MEDS ORDERED: Acetaminophen 500mg (ES) tab ORAL ONE (22:45)
[2017-07-11] MEDS ORDERED: AMOXICILLIN500 MG ORAL (22:48)
--- NOTE | 2017-07-11 22:49 | Emergency Room Report ---
History of Present Illness General Chief Complaint: Toothache Source: Patient Present Illness HPI Is a 62-year-old female with history of CAD and CHF. She also has a history of chronic pain. She presents with chief complaint of dental pain. Her teeth are arrival to the now. She require surgery but hasn't had it done yet. She presents with generalize pain for the last several days. Said she is out of her [place]. Denies any other complaint. Pain is 10 out of 10. Worse with eating. Denies nausea or vomiting. Denies any fever. Allergies: Coded Allergies: ERYTHROMYCIN BASE (Verified Allergy, Unknown, 02/22/17) IBUPROFEN (Unverified Allergy, Unknown, 02/22/17) KETOROLAC (Verified Allergy, Unknown, 02/22/17) ZOLPIDEM (Unverified Allergy, Unknown, 02/22/17) Patient History Past Medical History: see triage record, old chart reviewed, HTN, CAD, CHF Past Surgical History: other Pertinent Family History: none Social History: Reports: smoking Last Menstrual Period: none Now: No Immunizations: other Reviewed Nursing Documentation: PMH: Agreed, PSxH: Agreed Nursing Documentation-PMH Hx Cardiac Problems: Yes - Artherosclerosis Hx Hypertension: Yes Hx Asthma: Yes Hx Gastrointestinal Problems: Yes - ulcers gastritis Hx Neurological Problems: Yes - fibromyalgia, neuropathy Review of Systems Eye: Denies: eye pain, blurred vision ENT: Denies: ear pain, nose congestion, throat swelling Respiratory: Denies: cough, shortness of breath Cardiovascular: Denies: chest pain, palpitations Gastrointestinal: Denies: abdominal pain, diarrhea, nausea, vomiting Musculoskeletal: Denies: back pain, joint pain Skin: Denies: rash Neurological: Denies: headache, numbness Endocrine: Denies: increased thirst, increased urine Hematologic/Lymphatic: Denies: easy bruising All Other Systems: negative except mentioned in HPI Physical Exam Vital Signs Date Time Temp Pulse Resp B/P (MAP) Pulse Ox O2 Delivery O2 Flow Rate FiO2 07/11/17 22:00 97.9 70 20 162/106 96 Room Air vitals with high blood pressure Sp02 EP Interpretation: reviewed, normal General Appearance: no apparent distress, alert, Chronically Ill Head: normocephalic, atraumatic Eyes: bilateral eye PERRL, bilateral eye EOMI ENT: hearing grossly normal, normal pharynx, other - Poor dentition. No upper teeth. 2 lower teeth midline are decay to the nub. No abscess. Neck: full range of motion, supple, no meningismus Respiratory: chest non-tender, lungs clear, normal breath sounds Cardiovascular #1: regular rate, rhythm, no murmur Gastrointestinal: normal bowel sounds, non tender, no mass, no organomegaly, no bruit, non-distended Musculoskeletal: back normal, gait/station normal, normal range of motion Neurologic: alert, oriented x3 Psychiatric: mood/affect normal Skin: warm/dry Medical Decision Making Diagnostic Impression: Primary Impression: Toothache Additional Impression: Opiate dependence Qualified Codes: F11.20 - Opioid dependence, uncomplicated ER Course Present with dental pain. She has history of opioid dependence. She gets monthly prescription for [place] 10-325, #45. She also gets better with codeine every month. She is here with a friend of her Rizwana Menendez who is here for also pain complaint. The see the same doctor and get the same prescriptions at the same time. She recently got a prescription for [place] on the July 05. she receive 45 tablets. She claimed that she is out already. Pain uncomfortable giving her any more narcotics. Since she claimed that her friend is driving. her friend claimed that this patient is driving. Last Vital Signs Date Time Temp Pulse Resp B/P (MAP) Pulse Ox O2 Delivery O2 Flow Rate FiO2 07/11/17 22:12 97.9 70 20 162/106 96 Room Air Status: unchanged Disposition: HOME, SELF-CARE Condition: Stable Scripts Amoxicillin* (AMOXIL*) 500 Mg Capsule 500 MG ORAL EVERY 8 HOURS, #21 CAP Prov: SHILPA SEBASTIAN M.D. 07/11/17 Patient Instructions: Dental Pain Additional Instructions: Followup with your doctor/dentist in 7 days. Return if worse. SHILPA SEBASTIAN M.D. Jul 11, 2017 22:49
== END 2017-07-11 22:53 | disposition home or self-care (01) ==
LOC: EMR 22:30
DX: K08.89 Other specified disorders of teeth and supporting structures (principal); F11.20 Opioid dependence, uncomplicated; I10 Essential (primary) hypertension; J45.909 Unspecified asthma, uncomplicated; Z88.6 Allergy status to analgesic agent; Z88.1 Allergy status to other antibiotic agents; Z88.8 Allergy status to other drugs, medicaments and biological substances
CPT/HCPCS: 99283

== ENCOUNTER 2017-07-22 11:06 | Inpatient (IN) | payer MEDICAID ==
[~2017-07-22] VITALS: Ht 154.9 cm; Wt 38.6 kg
[~2017-07-22 11:06] MED LIST changes: +AMOXICILLIN500 MG ORAL
[2017-07-22] MEDS ORDERED: Ipratropium 0.02% Inh Soln 2.5ml UD HHN ONE (11:15)
[2017-07-22] MEDS ORDERED: Albuterol ud Inhalation HHN ONE (11:15)
[2017-07-22 11:35] VITALS: BP 163/108
[2017-07-22] MEDS ORDERED: Cefepime HCl 1 GM in D5W 55 ML IVPB ONE (12:30)
[2017-07-22 12:33] LABS: ANION GAP 13 mmol/L (5-15); CALCIUM 8.8 MG/DL (8.5-10.1); CARBON DIOXIDE 22 MMOL/L (21-32); CHLORIDE 107 MMOL/L (98-107); CREATININE 0.7 MG/DL (0.55-1.30); GLOMERULAR FILTRATION RATE > 60 mL/min (>60); POTASSIUM 3.7 MMOL/L (3.5-5.1); SODIUM 142 MMOL/L (136-145)
[2017-07-22 12:42] LABS: ALANINE AMINOTRANSFERASE 44 U/L (12-78); ALBUMIN/GLOBULIN RATIO 0.8 (1.0-2.7); ASPARTATE AMINO TRANSFERASE 36 U/L (15-37); BASOPHILS % (AUTO) 0.7 % (0.0-2.0); EOSINOPHILS % (AUTO) 0.4 % (0.0-3.0); LIPASE 211 U/L (73-393); LYMPHOCYTES % (AUTO) 27.7 % (20.0-45.0); MEAN CORPUSCULAR HEMOGLOBIN 29.8 PG (27.0-31.0); MEAN CORPUSCULAR HGB CONC 32.1 G/DL (32.0-36.0); MEAN CORPUSCULAR VOLUME 93 FL (80-99); MONOCYTES % (AUTO) 10.3 % (1.0-10.0); RED BLOOD COUNT 4.56 M/UL (4.20-5.40); RED CELL DISTRIBUTION WIDTH 12.9 % (11.6-14.8); TOTAL PROTEIN 8.5 G/DL (6.4-8.2); WHITE BLOOD COUNT 3.1 K/UL (4.8-10.8)
[2017-07-22 12:47] LABS: MEAN PLATELET VOLUME 8.4 FL (6.5-10.1); PLATELET COUNT 142 K/UL (150-450)
[2017-07-22 12:53] LABS: BAND NEUTROPHILS % (MANUAL) 3 % (0-8); EOSINOPHILS % (MANUAL) 2 % (0-3); LYMPHOCYTES % (MANUAL) 32 % (20-45); NEUTROPHILS % (MANUAL) 57 % (45-75); TOTAL CELLS COUNTED 100
[2017-07-22 12:54] LABS: BASOPHILS % (MANUAL) 0 % (0-2); PLATELET ESTIMATE DECREASED
[2017-07-22 12:55] LABS: PLATELET CLUMPS 2+; PLATELET MORPHOLOGY NORMAL
[2017-07-22 13:00] VITALS: BP 172/90
--- NOTE | 2017-07-22 13:54 | Emergency Room Report ---
History of Present Illness General Chief Complaint: Upper Respiratory Illness Source: Patient, Medical Record Present Illness HPI Patient presents with productive cough chest pain fevers rigors and weakness. This has been going on for several days. She is coughing up yellow and brown material. She also has heard herself wheezing. She has COPD. She's had pneumonia in the past. She's been unable to keep down liquids for the last 3 days. Pain in her R chest is 8/10, pleuritic and not radiating. She has not taken medication for this. Chest pain is right-sided. She gets extremely dyspneic when she tries to walk about her place. She has fallen down due to weakness. She denies any major injury from her falls but still feels weak. She's also had loose stools and denies dysuria. Poor appetite. Some depression. H/O RA and fibromyalgia with neuropathy. Allergies: Coded Allergies: ERYTHROMYCIN BASE (Verified Allergy, Unknown, 02/22/17) IBUPROFEN (Unverified Allergy, Unknown, 02/22/17) KETOROLAC (Verified Allergy, Unknown, 02/22/17) ZOLPIDEM (Unverified Allergy, Unknown, 02/22/17) Patient History Past Medical History: see triage record Social History: Reports: smoking - prior Social History Narrative at home Now: No Reviewed Nursing Documentation: PMH: Agreed, PSxH: Agreed Nursing Documentation-PMH Past Medical History: No History, Except For Hx Cardiac Problems: Yes - Artherosclerosis Hx Hypertension: Yes Hx Asthma: Yes Hx Gastrointestinal Problems: Yes - ulcers gastritis Hx Neurological Problems: Yes - fibromyalgia, neuropathy Review of Systems All Other Systems: negative except mentioned in HPI Physical Exam Vital Signs Date Time Temp Pulse Resp B/P (MAP) Pulse Ox O2 Delivery O2 Flow Rate FiO2 07/22/17 11:11 100.2 88 18 182/90 96 Room Air 07/22/17 11:25 21 Sp02 EP Interpretation: reviewed, abnormal - low as interpreted by me General Appearance: no apparent distress, alert, GCS 15, non-toxic, thin, Chronically Ill Head: normocephalic, atraumatic Eyes: bilateral eye normal inspection, bilateral eye PERRL ENT: dry mucus membranes Neck: supple Respiratory: rales - R base Cardiovascular #1: regular rate, rhythm, no edema Cardiovascular #2: 2+ radial (R) Gastrointestinal: normal inspection, normal bowel sounds, non tender, no mass, non-distended, scaphoid Musculoskeletal: back normal, gait/station normal, normal range of motion Neurologic: alert, oriented x3, DTRs symmetric, sensory intact, speech normal, motor weakness - diffuse Psychiatric: depressed affect Skin: normal inspection, warm/dry Medical Decision Making Diagnostic Impression: Primary Impression: Right lower lobe pneumonia Qualified Codes: J18.1 - Lobar pneumonia, unspecified organism Additional Impressions: COPD (chronic obstructive pulmonary disease) Qualified Codes: J44.1 - Chronic obstructive pulmonary disease with (acute) exacerbation Falling episodes ER Course The patient presents with fevers chest pain and cough. Just as weakness. Differential includes bronchitis, exacerbation of COPD, pneumonia amongst others. Evaluation will be with EKG, chest x-ray and labs. EKG shows normal sinus rhythm with right axis deviation. There is no acute injury. Chest x-ray reveals infiltrate which is new compared to prior x-rays. White count is normal. The patient is improved with oxygen breathing treatments and also IV hydration. Antibiotics were begun. O2 sats improved with treatment. The patient was presented to Dr. Rm who accepts the patient at [facility]. Patient treated with [place] for pain with improvement. Because they were unable to secure a bed or transport, the patient was admitted to [facility] to Dr. George. Patient initially admitted observation. Laboratory Tests Test 07/22/17 11:50 White Blood Count 3.1 K/UL (4.8-10.8) L Red Blood Count 4.56 M/UL (4.20-5.40) Hemoglobin 13.6 G/DL (12.0-16.0) Hematocrit 42.5 % (37.0-47.0) Mean Corpuscular Volume 93 FL (80-99) Mean Corpuscular Hemoglobin 29.8 PG (27.0-31.0) Mean Corpuscular Hemoglobin Concent 32.1 G/DL (32.0-36.0) Red Cell Distribution Width 12.9 % (11.6-14.8) Platelet Count 142 K/UL (150-450) L Mean Platelet Volume 8.4 FL (6.5-10.1) Neutrophils (%) (Auto) 61.0 % (45.0-75.0) Lymphocytes (%) (Auto) 27.7 % (20.0-45.0) Monocytes (%) (Auto) 10.3 % (1.0-10.0) H Eosinophils (%) (Auto) 0.4 % (0.0-3.0) Basophils (%) (Auto) 0.7 % (0.0-2.0) Differential Total Cells Counted 100 Neutrophils % (Manual) 57 % (45-75) Lymphocytes % (Manual) 32 % (20-45) Monocytes % (Manual) 6 % (1-10) Eosinophils % (Manual) 2 % (0-3) Basophils % (Manual) 0 % (0-2) Band Neutrophils 3 % (0-8) Platelet Estimate Decreased L Platelet Morphology Normal Clumped Platelets 2+ Red Blood Cell Morphology Normal Prothrombin Time 10.0 SEC (9.30-11.50) Prothrombin Time INR 1.0 (0.9-1.1) PTT 26 SEC (23-33) Sodium Level 142 MMOL/L (136-145) Potassium Level 3.7 MMOL/L (3.5-5.1) Chloride Level 107 MMOL/L (98-107) Carbon Dioxide Level 22 MMOL/L (21-32) Anion Gap 13 mmol/L (5-15) Blood Urea Nitrogen 6 mg/dL (7-18) L Creatinine 0.7 MG/DL (0.55-1.30) Estimate Glomerular Filtration Rate > 60 mL/min (>60) Glucose Level 101 MG/DL (74-106) Lactic Acid Level 1.00 mmol/L (0.66-2.22) Calcium Level 8.8 MG/DL (8.5-10.1) Total Bilirubin 0.2 MG/DL (0.2-1.0) Aspartate Amino Transferase (AST) 36 U/L (15-37) Alanine Aminotransferase (ALT) 44 U/L (12-78) Alkaline Phosphatase 100 U/L (46-116) Total Creatine Kinase 50 U/L (26-308) Troponin I 0.000 ng/mL (0.000-0.056) Pro-B-Type Natriuretic Peptide 171 pg/mL (0-125) H Total Protein 8.5 G/DL (6.4-8.2) H Albumin 3.7 G/DL (3.4-5.0) Globulin 4.8 g/dL Albumin/Globulin Ratio 0.8 (1.0-2.7) L Lipase 211 U/L (73-393) Microbiology Date/Time Source Procedure Growth Status 07/22/17 12:40 Nasal Nares Influenza Types A,B Antigen (NAOMIE) - Final Complete EKG Diagnostic Results Rate: normal Rhythm: NSR ST Segments: no acute changes - R [place] Rhythm Strip Diag. Results EP Interpretation: yes Rhythm: NSR, no PVC's, no ectopy Chest X-Ray Diagnostic Results Chest X-Ray Diagnostic Results : Chest X-Ray Ordered: Yes # of Views/Limited/Complete: 1 View Indication: Other Interpretation: no effusion, no pneumothorax Last Vital Signs Date Time Temp Pulse Resp B/P (MAP) Pulse Ox O2 Delivery O2 Flow Rate FiO2 07/22/17 17:26 98.9 75 16 152/96 99 Room Air 21 76 Status: improved Disposition: PLACE IN OBSERVATION Condition: Serious Referrals: [facility],REFERRING (PCP) Jefry Valiente M.D. Jul 22, 2017 13:54
[2017-07-22] MEDS ORDERED: Cefepime 1gm vial ONE (14:51)
[2017-07-22 15:30] VITALS: BP 168/100
[2017-07-22 16:53] VITALS: BP 152/96
[2017-07-22] MEDS ORDERED: Norco 5mg/325mg tab ORAL ONE (17:15)
[2017-07-22 17:26] VITALS: BP 152/96
[2017-07-22] MEDS ORDERED: HYDROCODON-ACE1 EA13 PO (17:55)
[2017-07-22] MEDS ORDERED: PROMETHAZINE-C118 M1 ORAL (18:06)
[2017-07-22] MEDS ORDERED: MIRTAZAPINE15 M3 PO (18:06)
[2017-07-22] MEDS ORDERED: VENTOLIN HFA18 GM INH (18:08)
--- NOTE | 2017-07-23 10:37 | Diagnostic Imaging Report ---
Indication: Shortness of breath Comparison: 05/05/2017 Findings: Single view of the chest shows normal cardiac size. Pulmonary vasculature is normal. Again noted is bilateral diffuse interstitial prominence with hyperinflation the lung richards and flattening of the diaphragm consistent with COPD changes. No definite superimposed acute infiltrate is seen. Impression: No acute chest disease Stable bilateral chronic interstitial changes/COPD.
--- NOTE | 2017-07-23 23:15 | Consultation ---
DATE OF CONSULTATION: 07/22/2017 INTERNAL MEDICINE EVALUATION HISTORY OF PRESENT ILLNESS: This is a 62-year-old female with a history of chronic obstructive pulmonary disease and a previous history of pneumonia. She came to the hospital with cough, chest pain, rigors, and weakness. She was seen and worked up. She was noted to have a right lung infiltrate. She had no leukocytosis and no hypoxemia. Initially, I was contacted to admit the patient, however per discussion with Dr. Valiente, it was felt that the patient could possibly be managed at home as well, however, the ER physician felt strongly that the patient should be at least admitted for observation. At this point, I contacted the on-call shelter case manager for [place] and arrangements have been made for the patient's transfer to [facility]. PAST MEDICAL HISTORY: COPD only. The patient has a history of hypertension as well and fibromyalgia. PAST SURGICAL HISTORY: None. HOME MEDICATIONS: Summarized in the chart. ALLERGIES: Erythromycin, ibuprofen, ketorolac, and zolpidem. REVIEW OF SYSTEMS: Denies any headaches, hematemesis, melena, hematochezia, night sweats, or weight loss. PHYSICAL EXAMINATION: VITAL SIGNS: Blood pressure is 180/90, heart rate 94, respirations are 18, O2 sat is 96% on room air, and T-max 100.2. HEENT: Unremarkable. CHEST: Shows few rhonchi. ABDOMEN: Soft. EXTREMITIES: There is no edema. LABORATORY AND IMAGING STUDY: X-ray of the chest per ER physician had shown a right lung infiltrate. I am unable to review the images myself at this point in time. Laboratory testing is noncontributory with normal CBC and BMP. IMPRESSION: 1. Right lung pneumonia. 2. Chronic obstructive pulmonary disease. 3. Hypertension. 4. Fibromyalgia. DISCUSSION: The patient will be transferred to Hospital. Discussed with the shelter case manager. Kash George M.D. DR: FRANKLIN JOB#: [id number] CC:
--- NOTE | 2017-07-30 15:56 | Cardiology Report ---
APPROVED REPORT EKG Measurement Heart [id number] Normal sinus rhythm Rightward axis Borderline ECG
== END 2017-07-22 18:30 | disposition short-term general hospital (02) | DRG 139 ==
LOC: EDBD 11:06 → EMR 11:29 → 4E 15:00 → EDBEDREQ 15:23 → 3E 15:45 → UNDOADMIN 15:45 → EDBEDREQ 16:24 → 3E 16:24 → UNDOADMOB 16:24 → EMR 17:58
DX: J18.9 Pneumonia, unspecified organism (principal); J44.0 Chronic obstructive pulmonary disease with (acute) lower respiratory infection; G62.9 Polyneuropathy, unspecified; I10 Essential (primary) hypertension; Z91.81 History of falling; M79.7 Fibromyalgia
CPT/HCPCS: 36415; 71010; 80053; 82550; 83605; 83690; 83880; 84484; 85007; 85025; 85610; 85730; 86710; 87040; 93005; 94640; 94664; 96361; 96374; 96375; 99285; J2405

== ENCOUNTER 2018-01-02 06:55 | Emergency (ER) | payer MEDICAID ==
[~2018-01-02] VITALS: Ht 180.3 cm; Wt 44.9 kg
[~2018-01-02 06:55] MED LIST changes: +HYDROCODON-ACE1 EA13 PO; +MIRTAZAPINE15 M3 PO; +PROMETHAZINE-C118 M1 ORAL; +VENTOLIN HFA18 GM INH
--- NOTE | 2018-01-02 07:07 | Emergency Room Report ---
History of Present Illness General Source: Patient Present Illness HPI 62yo F c/o L sided punching type, constant, nonradiating severe CP for 3 days No alleviating or exacerbating factors, no F/C, no leg swelling, no hemoptysis She was given aspirin 324 and 1 SL NTG spray by EMS without relief just prior to arrival She reports similar pain in the past when she's had pneumonia Allergies: Coded Allergies: ERYTHROMYCIN BASE (Verified Allergy, Unknown, 02/22/17) IBUPROFEN (Unverified Allergy, Unknown, 02/22/17) KETOROLAC (Verified Allergy, Unknown, 02/22/17) ZOLPIDEM (Unverified Allergy, Unknown, 02/22/17) Patient History Past Medical History: see triage record Reviewed Nursing Documentation: PMH: Agreed; PSxH: Agreed Review of Systems All Other Systems: negative except mentioned in HPI Physical Exam Sp02 EP Interpretation: reviewed, normal General Appearance: no apparent distress, alert, non-toxic Head: normocephalic Eyes: bilateral eye normal inspection, bilateral eye PERRL, bilateral eye EOMI ENT: normal ENT inspection, hearing grossly normal, normal pharynx, no angioedema, normal voice, moist mucus membranes Neck: normal inspection, full range of motion, supple, supple/symm/no masses Respiratory: chest non-tender, lungs clear, normal breath sounds, chest symmetrical, palpation of chest normal Cardiovascular #1: normal peripheral pulses, regular rate, rhythm Cardiovascular #2: 2+ radial (R), 2+ radial (L) Gastrointestinal: normal inspection, non tender, soft, no mass, no guarding, no rebound Rectal: deferred Genitourinary: normal inspection, no CVA tenderness Musculoskeletal: back normal, gait/station normal, normal range of motion, non- tender, no calf tenderness Neurologic: alert, responsive, 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 I spoke with Dr. Kilgore from [facility] who requested an outpatient workup and that they would get in touch with her to ensure this happened, Patient is resting calmly, in no distress, will give rx for motrin and pepcid and outpt f/u, return precautions for cp or sob or new symptoms given, patient understands and agrees. EKG Diagnostic Results EKG Time: 07:07 EP Interpretation: no st-t changes, no twi Rate: normal Rhythm: NSR ST Segments: no acute changes ASA given to the pt in ED: Yes Rhythm Strip Diag. Results Rhythm Strip Time: 07:07 EP Interpretation: yes Rate: 80 Rhythm: NSR, no PVC's Chest X-Ray Diagnostic Results Chest X-Ray Diagnostic Results : Chest X-Ray Ordered: Yes # of Views/Limited/Complete: 1 View Indication: Chest Pain EP Interpretation: Yes Interpretation: no consolidation, no effusion, no pneumothorax, no acute cardiopulmonary disease Impression: No acute disease Electronically Signed by: Jules Fink MD Status: improved Disposition: HOME, SELF-CARE Condition: Stable Scripts Famotidine (PEPCID) 20 Mg Tablet 20 MG ORAL DAILY, #7 TAB 0 Refills Prov: JULES FINK M.D 01/02/18 Ibuprofen* (MOTRIN*) 600 Mg Tablet 600 MG ORAL Q8H PRN for For Pain, #10 TAB 0 Refills Prov: JULES FINK M.D 01/02/18 JULES FINK M.D Jan 02, 2018 07:07
[2018-01-02 07:10] VITALS: BP 174/98
[2018-01-02] MEDS ORDERED: LORazepam 1mg tab ORAL ONE (07:15)
[2018-01-02] MEDS ORDERED: Dicyclomine HCl 10mg/5ml oral soln ORAL ONE (07:30)
[2018-01-02] MEDS ORDERED: Mylanta II UD 30ml ORAL ONE (07:30)
[2018-01-02] MEDS ORDERED: Lidocaine 2% Visc 15ml soln PO ONE (07:30)
[2018-01-02 07:50] LABS: HEMATOCRIT 41.1 % (37.0-47.0); HEMOGLOBIN 13.7 G/DL (12.0-16.0); MEAN CORPUSCULAR VOLUME 89 FL (80-99); RED BLOOD COUNT 4.63 M/UL (4.20-5.40); RED CELL DISTRIBUTION WIDTH 14.7 % (11.6-14.8)
[2018-01-02 08:00] VITALS: BP 163/89
[2018-01-02 08:00] LABS: ALANINE AMINOTRANSFERASE 71 U/L (12-78); ALBUMIN 3.4 G/DL (3.4-5.0); ALBUMIN/GLOBULIN RATIO 0.8 (1.0-2.7); ALKALINE PHOSPHATASE 84 U/L (46-116); ANION GAP 10 mmol/L (5-15); ASPARTATE AMINO TRANSFERASE 102 U/L (15-37); BILIRUBIN,TOTAL 0.4 MG/DL (0.2-1.0); BLOOD UREA NITROGEN 6 mg/dL (7-18); CALCIUM 8.8 MG/DL (8.5-10.1); CARBON DIOXIDE 25 MMOL/L (21-32); CHLORIDE 109 MMOL/L (98-107); CREATININE 0.5 MG/DL (0.55-1.30); POTASSIUM 3.2 MMOL/L (3.5-5.1); SODIUM 144 MMOL/L (136-145)
[2018-01-02 09:00] VITALS: BP 152/100
[2018-01-02 09:00] LABS: PLATELET COUNT 194 K/UL (150-450)
[2018-01-02] MEDS ORDERED: GI Cocktail 120ml ORAL ONE (09:00)
--- NOTE | 2018-01-02 09:20 | Diagnostic Imaging Report ---
Indication: Chest pain Technique: One view of the chest Comparison: 07/22/2017 Findings: Lungs and pleural spaces are clear. The heart size is normal. No significant change Impression: No acute process
[2018-01-02] MEDS ORDERED: PEPCID20 MG ORAL (09:41)
[2018-01-02] MEDS ORDERED: IBUPROFEN600 MG ORAL (09:41)
[2018-01-02] MEDS ORDERED: Norco 5mg/325mg tab ORAL ONE (10:15)
[2018-01-02 10:26] VITALS: BP 155/100
--- NOTE | 2018-01-02 13:40 | Cardiology Report ---
APPROVED REPORT EKG Measurement Heart [id number] Normal sinus rhythm Normal ECG
== END 2018-01-02 10:55 | disposition home or self-care (01) ==
LOC: EDBD 06:55 → EMR 07:44 → CANBEDREQ 10:08 → EMR 10:55
DX: R07.9 Chest pain, unspecified (principal); Z88.1 Allergy status to other antibiotic agents; Z88.6 Allergy status to analgesic agent; Z88.8 Allergy status to other drugs, medicaments and biological substances
CPT/HCPCS: 36415; 71045; 80053; 84484; 85007; 85025; 93005; 99284; J8499

== ENCOUNTER 2018-03-12 15:35 | Emergency (ER) | payer MEDICAID ==
[~2018-03-12] VITALS: Ht 154.9 cm; Wt 43.1 kg
[~2018-03-12 15:35] MED LIST changes: +IBUPROFEN600 MG ORAL; +PEPCID20 MG ORAL
[2018-03-12 15:36] VITALS: BP 159/100
--- NOTE | 2018-03-12 15:53 | Emergency Room Report ---
History of Present Illness General Chief Complaint: Pain Source: Patient, EMS Present Illness HPI 63-year-old female patient presents ER brought in by ambulance complaining of bilateral foot pain for the past 4 days. Reports history of similar symptoms for the past several years. Reports history of fibromyalgia. Reports has taken pain medications and received injections for pain previously but has not followed up with primary care provider in a month or 2. Has previously done pain management she is not completely treated her symptoms. Reports no injury or recent trauma. Reports is not taking any medication for the pain today. requesting pain medication. Denies fever, chest pain, shortness of breath. Denies other acute symptoms. Denies bowel or bladder incontinence. Allergies: Coded Allergies: ERYTHROMYCIN BASE (Verified Allergy, Unknown, 02/22/17) IBUPROFEN (Unverified Allergy, Unknown, 02/22/17) KETOROLAC (Verified Allergy, Unknown, 02/22/17) ZOLPIDEM (Unverified Allergy, Unknown, 02/22/17) Patient History Past Medical History: see triage record Last Menstrual Period: n/a Reviewed Nursing Documentation: PMH: Agreed; PSxH: Agreed Nursing Documentation-PMH Hx Cardiac Problems: Yes - Artherosclerosis, CHF Hx Hypertension: Yes Hx Asthma: Yes Hx Gastrointestinal Problems: Yes - GI ulcers, Gastritis History Of Psychiatric Problem: Yes Review of Systems All Other Systems: negative except mentioned in HPI Physical Exam Vital Signs Date Time Temp Pulse Resp B/P (MAP) Pulse Ox O2 Delivery O2 Flow Rate FiO2 03/12/18 15:30 99.6 76 18 159/100 96 Room Air 99.7 Sp02 EP Interpretation: reviewed, normal General Appearance: well appearing, no apparent distress, alert, GCS 15, non- toxic Head: normocephalic, atraumatic Eyes: bilateral eye normal inspection, bilateral eye PERRL ENT: hearing grossly normal, normal pharynx, no angioedema, normal voice, uvula midline, moist mucus membranes Neck: full range of motion Respiratory: lungs clear, normal breath sounds, no rhonchi, no respiratory distress, no accessory muscle use, no wheezing, speaking full sentences Cardiovascular #1: regular rate, rhythm, no edema Musculoskeletal: back normal, digits/nails normal, gait/station normal, normal range of motion, non-tender Neurologic: alert, oriented x3, responsive, motor strength/tone normal, sensory intact Psychiatric: mood/affect normal Skin: no rash Medical Decision Making PA Attestation Dr. Khan is my supervising Physician whom patient management has been discussed with. Diagnostic Impression: Primary Impression: Chronic pain ER Course Pt. presents to the ED c/o chronic bilateral foot pain worsen last 4 days. multiple differentials considered. Vital signs: are WNL, pt. is afebrile ER COURSE: erythema, edema, no signs of infection suspicion for bacterial infection. No podagra, no gouty tophi, no warmth to palpation, low suspicion for gout or septic joint. patient has a history of fibromyalgia and chronic pain complaints, has not been taking medication and requesting pain medication. Provided with pain medication ER. Cures report reviewed, medication provided in December, no prescription since that time. Provided [place] in ER, instructed patient that she is to follow with pain management for further treatment. Will not provide opioid medication at discharge. Follow-up with primary care provider and pain management specialists for further treatment and evaluation. Patient states she will followup, states she has follow-up appointment with her physician at the end of the month. following providing pain medication ER patient states she wants to leave now, reports symptoms improved. Provide patient with cane at discharge. Patient observed walking in the ER independently without difficulty. Nontoxic appearing, in no acute distress, stable for discharge home. DISCHARGE: Rx provided for Tylenol At this time pt is stable for d/c to home. Patient is resting comfortably, in no acute distress, nontoxic appearing, talking without difficulty. Patient to take medications as instructed Will provide with patient care instructions and any necessary prescriptions. Care plan and follow-up instructions provided. Patient instructed to follow-up with primary care provider in 3 - 5 days. Patient questions asked and answered. Patient reports understanding and agreement to treatment plan. ER precautions given. Patient instructed to return to ER immediately for any new or worsening of symptoms including but not limited to increasing SOB, persistent fever, chest pain, intractable vomiting. - Please note that this Emergency Department Report was dictated using [employer] bin operator technology software, occasionally this can lead to erroneous entry secondary to interpretation by the dictation equipment. Last Vital Signs Date Time Temp Pulse Resp B/P (MAP) Pulse Ox O2 Delivery O2 Flow Rate FiO2 18 15:36 99.7 78 18 159/100 96 Room Air 99.7 Disposition: HOME, SELF-CARE Condition: Stable Scripts Acetaminophen* (TYLENOL EXTRA STRENGTH*) 500 Mg Tablet 500 MG ORAL Q8H PRN for Prn Headache/Temp > 101, #30 TAB 0 Refills Prov: Rajiv Swenson 03/12/18 Patient Instructions: Chronic Pain Additional Instructions: Patient instructed to follow up with primary care provider and discuss further referral to pain management. Patient instructed on RICE method: rest, ice, compression, elevation. Patient instructed to WBAT. Take medications as directed. Patient questions asked and answered. ER precautions given, patient instructed to return to ER immediately for any new or worsening of symptoms. Rajiv Swenson Mar 12, 2018 15:53
[2018-03-12] MEDS ORDERED: Norco 5mg/325mg tab ORAL ONE (16:00)
[2018-03-12] MEDS ORDERED: TYLENOL EXTRA500 MG ORAL (16:26)
[2018-03-12 16:29] VITALS: BP 155/97
== END 2018-03-12 16:35 | disposition home or self-care (01) ==
LOC: EDBD 15:35 → EMR 16:05
DX: G89.29 Other chronic pain (principal); M25.572 Pain in left ankle and joints of left foot; M25.571 Pain in right ankle and joints of right foot; Z88.6 Allergy status to analgesic agent; I50.9 Heart failure, unspecified; I11.9 Hypertensive heart disease without heart failure; I25.10 Atherosclerotic heart disease of native coronary artery without angina pectoris; M79.7 Fibromyalgia
CPT/HCPCS: 99283

== ENCOUNTER 2018-07-25 11:54 | Emergency (ER) | payer MEDICAID ==
[~2018-07-25] VITALS: Ht 162.6 cm; Wt 49.9 kg
[2018-07-25 11:56] VITALS: BP 165/97
[2018-07-25] MEDS ORDERED: AMLODIPINE BESYL5 MG ORAL (12:00)
[2018-07-25] MEDS ORDERED: LISINOPRIL20 MG ORAL (12:00)
[2018-07-25] MEDS ORDERED: ASPIRIN81 MG ORAL (12:00)
[2018-07-25] MEDS ORDERED: ATORVASTATIN CA20 MG ORAL (12:00)
[2018-07-25] MEDS ORDERED: HYDRALAZINE HC100 MG ORAL (12:00)
[2018-07-25] MEDS ORDERED: Sodium Chloride 500ML 500 ML IV ONE (12:14)
[2018-07-25 12:59] LABS: ANION GAP 11 mmol/L (5-15); BLOOD UREA NITROGEN 9 mg/dL (7-18); CALCIUM 9.6 MG/DL (8.5-10.1); CARBON DIOXIDE 26 MMOL/L (21-32); CHLORIDE 107 MMOL/L (98-107); CREATININE 0.7 MG/DL (0.55-1.30); POTASSIUM 3.3 MMOL/L (3.5-5.1); SODIUM 144 MMOL/L (136-145)
[2018-07-25 13:17] LABS: ALANINE AMINOTRANSFERASE 69 U/L (12-78); ALBUMIN 3.9 G/DL (3.4-5.0); ALBUMIN/GLOBULIN RATIO 0.7 (1.0-2.7); ALKALINE PHOSPHATASE 100 U/L (46-116); ASPARTATE AMINO TRANSFERASE 43 U/L (15-37); BASOPHILS % (AUTO) 1.1 % (0.0-2.0); BILIRUBIN,TOTAL 0.2 MG/DL (0.2-1.0); CKMB 1.2 NG/ML (0.0-3.6); CREATINE KINASE 66 U/L (26-308); EOSINOPHILS % (AUTO) 0.4 % (0.0-3.0); HEMATOCRIT 46.2 % (37.0-47.0); HEMOGLOBIN 15.1 G/DL (12.0-16.0); LYMPHOCYTES % (AUTO) 24.4 % (20.0-45.0); MEAN CORPUSCULAR VOLUME 88 FL (80-99); MONOCYTES % (AUTO) 4.6 % (1.0-10.0); NEUTROPHILS % (AUTO) 69.5 % (45.0-75.0); PLATELET COUNT 165 K/UL (150-450); RED BLOOD COUNT 5.23 M/UL (4.20-5.40); RED CELL DISTRIBUTION WIDTH 12.4 % (11.6-14.8); WHITE BLOOD COUNT 5.5 K/UL (4.8-10.8)
[2018-07-25] MEDS ORDERED: Tylenol #3 tab (300mg/30mg) ORAL ONE (14:00)
[2018-07-25] MEDS ORDERED: Methocarbamol 750mg tab ORAL ONE (14:00)
[2018-07-25] MEDS ORDERED: ACETAMINOPHEN-1 EAC1 ORAL (14:02)
[2018-07-25] MEDS ORDERED: ROBAXIN-750750 MG PO (14:02)
[2018-07-25 14:13] VITALS: BP 155/80
--- NOTE | 2018-07-25 14:58 | Diagnostic Imaging Report ---
Indication: Chest pain Technique: One view of the chest Comparison: 01/02/2018 Findings: Lungs and pleural spaces are clear. Heart size is normal. No significant change Impression: No acute process
--- NOTE | 2018-07-25 14:59 | Emergency Room Report ---
History of Present Illness General Chief Complaint: Pain Source: Patient Present Illness HPI 63-year-old female presents ED complaining of chest pain 4 days. Brought in by EMS. Notes pain on the right side of chest, sharp, 8 out of 10, nonradiating. Denies shortness of breath. Notes pain with deep breaths. States that she's had muscle spasms all her life. States she also had a collapsed lung previously. Denies fevers or chills. Denies cough. No other aggravating relieving factors. Denies any other associated symptoms Allergies: Coded Allergies: ERYTHROMYCIN BASE (Verified Allergy, Unknown, 02/22/17) IBUPROFEN (Unverified Allergy, Unknown, 02/22/17) KETOROLAC (Verified Allergy, Unknown, 02/22/17) ZOLPIDEM (Unverified Allergy, Unknown, 02/22/17) Patient History Past Medical History: HTN, asthma, ulcer, GERD Past Surgical History: none Pertinent Family History: none Social History: Denies: smoking, alcohol use, drug use Now: No Immunizations: UTD Reviewed Nursing Documentation: PMH: Agreed; PSxH: Agreed Nursing Documentation-PMH Past Medical History: No History, Except For Hx Cardiac Problems: Yes - Artherosclerosis, CHF Hx Hypertension: Yes Hx Asthma: Yes Hx Gastrointestinal Problems: Yes - GI ulcers, Gastritis Review of Systems All Other Systems: negative except mentioned in HPI Physical Exam Vital Signs Date Time Temp Pulse Resp B/P (MAP) Pulse Ox O2 Delivery O2 Flow Rate FiO2 07/25/18 11:46 97.5 94 17 147/98 98 Room Air Sp02 EP Interpretation: reviewed, normal General Appearance: no apparent distress, alert, GCS 15, non-toxic, thin Head: normocephalic, atraumatic Eyes: bilateral eye normal inspection, bilateral eye PERRL ENT: hearing grossly normal, normal pharynx, no angioedema, normal voice Neck: full range of motion, supple/symm/no masses Respiratory: lungs clear, normal breath sounds, speaking full sentences, other - reproducible R anterior chest wall pain Cardiovascular #1: regular rate, rhythm, no edema Cardiovascular #2: 2+ carotid (R), 2+ carotid (L), 2+ radial (R), 2+ radial (L) , 2+ dorsalis pedis (R), 2+ dorsalis pedis (L) Gastrointestinal: normal bowel sounds, non tender, soft, non-distended, no guarding, no rebound Rectal: deferred Genitourinary: normal inspection, no CVA tenderness Musculoskeletal: back normal, gait/station normal, normal range of motion, non- tender Neurologic: alert, oriented x3, responsive, motor strength/tone normal, sensory intact, speech normal Psychiatric: judgement/insight normal, memory normal, mood/affect normal, no suicidal/homicidal ideation Reflexes: 3+ bicep (R), 3+ bicep (L), 3+ tricep (R), 3+ tricep (L), 3+ knee (R) , 3+ knee (L) Skin: normal color, no rash, warm/dry, well hydrated Lymphatic: no adenopathy Medical Decision Making Diagnostic Impression: Primary Impression: Chronic pain Qualified Codes: G89.29 - Other chronic pain Additional Impression: Chest wall pain ER Course Hospital Course 63-year-old female presents ED complaining of reproducible chest wall pain. h/o collapsed lung Differential diagnoses include: Rib fracture, AZ/unstable angina, contusion, muscle strain Clinical course Patient placed on stretcher. After initial history and physical I ordered labs , EKG, chest x-ray. labs reviewed- all electrolytes normal, troponins negative, no leukocytosis, hemoglobin/hematocrit stable EKG - NSR, no acute ischemic changes interpreted by me Chest x-ray-no cardiomegaly, no rib fracture, no pneumothorax, no acute process clinical findings consistent with muscle strain/costochondritis. Reassurance given. Patient has been here previously for similar chest wall pain. Workups have been negative at that time as well. We will prescribe pain medications, muscle relaxants. Safe for discharge close outpatient follow-up with PMD I. I feel this is a highly complex case requiring extensive working including EKG/Rhythm strip, Xray/CT/US, Blood/urine lab work, repeat exams while in ED, and administration of strong opiates/narcotics for pain control, admission to hospital or close patient follow up. Diagnosis - chronic pain, chest wall pain Stable and discharged to home with prescription for tylenol #3, robaxin. Instructed to followup with PMD. Return to ED if symptoms recur or worsen my chest wall pain shortness Labs Test 07/25/18 12:35 White Blood Count 5.5 K/UL (4.8-10.8) Red Blood Count 5.23 M/UL (4.20-5.40) Hemoglobin 15.1 G/DL (12.0-16.0) Hematocrit 46.2 % (37.0-47.0) Mean Corpuscular Volume 88 FL (80-99) Mean Corpuscular Hemoglobin 28.9 PG (27.0-31.0) Mean Corpuscular Hemoglobin Concent 32.7 G/DL (32.0-36.0) Red Cell Distribution Width 12.4 % (11.6-14.8) Platelet Count 165 K/UL (150-450) Mean Platelet Volume 8.8 FL (6.5-10.1) Neutrophils (%) (Auto) 69.5 % (45.0-75.0) Lymphocytes (%) (Auto) 24.4 % (20.0-45.0) Monocytes (%) (Auto) 4.6 % (1.0-10.0) Eosinophils (%) (Auto) 0.4 % (0.0-3.0) Basophils (%) (Auto) 1.1 % (0.0-2.0) Sodium Level 144 MMOL/L (136-145) Potassium Level 3.3 MMOL/L (3.5-5.1) Chloride Level 107 MMOL/L (98-107) Carbon Dioxide Level 26 MMOL/L (21-32) Anion Gap 11 mmol/L (5-15) Blood Urea Nitrogen 9 mg/dL (7-18) Creatinine 0.7 MG/DL (0.55-1.30) Estimat Glomerular Filtration Rate > 60 mL/min (>60) Glucose Level 121 MG/DL (74-106) Calcium Level 9.6 MG/DL (8.5-10.1) Total Bilirubin 0.2 MG/DL (0.2-1.0) Aspartate Amino Transf (AST/SGOT) 43 U/L (15-37) Alanine Aminotransferase (ALT/SGPT) 69 U/L (12-78) Alkaline Phosphatase 100 U/L (46-116) Total Creatine Kinase 66 U/L (26-308) Creatine Kinase MB 1.2 NG/ML (0.0-3.6) Creatine Kinase MB Relative Index 1.8 Troponin I 0.017 ng/mL (0.000-0.056) Pro-B-Type Natriuretic Peptide 229 pg/mL (0-125) Total Protein 9.4 G/DL (6.4-8.2) Albumin 3.9 G/DL (3.4-5.0) Globulin 5.5 g/dL Albumin/Globulin Ratio 0.7 (1.0-2.7) EKG Diagnostic Results Rate: normal Rhythm: NSR ST Segments: no acute changes ASA given to the pt in ED: No Rhythm Strip Diag. Results EP Interpretation: yes Rhythm: NSR, no PVC's, no ectopy Chest X-Ray Diagnostic Results Chest X-Ray Diagnostic Results : Chest X-Ray Ordered: Yes # of Views/Limited/Complete: 1 View Indication: Chest Pain EP Interpretation: Yes Interpretation: no consolidation, no effusion, no pneumothorax, no acute cardiopulmonary disease Impression: No acute disease Electronically Signed by: Electronically signed by Campbell Padgett MD Last Vital Signs Date Time Temp Pulse Resp B/P (MAP) Pulse Ox O2 Delivery O2 Flow Rate FiO2 07/25/18 14:13 98.4 70 18 155/80 100 Room Air Status: improved Disposition: HOME, SELF-CARE Condition: Stable Scripts Methocarbamol* (ROBAXIN-750*) 750 Mg Tablet 750 MG PO TID, #21 TAB 0 Refills Prov: Campbell Padgett MD 07/25/18 Acetaminophen With Codeine (T#3) (TYLENOL #3 TAB*) Y Tab 1 TAB ORAL Q8H PRN for For Pain, #20 TAB Prov: Campbell Padgett MD 07/25/18 Referrals: [facility],REFERRING (PCP) Patient Instructions: Chest Wall Pain, [id number] Campbell Padgett MD Jul 25, 2018 14:59
--- NOTE | 2018-07-27 16:40 | Cardiology Report ---
APPROVED REPORT EKG Measurement Heart [id number] Normal sinus rhythm Possible Left atrial enlargement Left posterior fascicular block Anterior infarct, age undetermined Abnormal ECG
== END 2018-07-25 14:13 | disposition home or self-care (01) ==
LOC: EDBD 11:54 → EMR 13:00
DX: G89.29 Other chronic pain (principal); R07.89 Other chest pain; I10 Essential (primary) hypertension; I50.9 Heart failure, unspecified
CPT/HCPCS: 36415; 71045; 80053; 82550; 82553; 83880; 84484; 85025; 93005; 99284; J7040

== ENCOUNTER 2019-03-04 16:37 | Emergency (ER) | payer MEDICAID ==
[~2019-03-04] VITALS: Ht 154.9 cm; Wt 40.8 kg
[~2019-03-04 16:37] MED LIST changes: +AMLODIPINE BESYL5 MG ORAL; +ASPIRIN81 MG ORAL; +ATORVASTATIN CA20 MG ORAL; +HYDRALAZINE HC100 MG ORAL; +LISINOPRIL20 MG ORAL; +ROBAXIN-750750 MG PO
[2019-03-04 16:45] VITALS: BP 161/111
[2019-03-04] MEDS ORDERED: Tylenol #3 tab (300mg/30mg) ORAL ONE (17:15)
[2019-03-04] MEDS ORDERED: TYLENOL EXTRA500 MG ORAL (17:41)
[2019-03-04 17:51] VITALS: BP 156/89
--- NOTE | 2019-03-04 17:53 | NUR ---
ER DISCHARGE NOTE: Patient is cleared to be discharged per ERMD, pt is aox4, on room air, with stable vital signs. pt was given dc and prescription instructions, pt was able to verbalize understanding, pt is able to ambulate with steady gait with cane provided. pt took all belongings.
--- NOTE | 2019-03-04 19:14 | Emergency Room Report ---
History of Present Illness General Chief Complaint: Pain Source: Medical Record, EMS Present Illness HPI 64-year-old female presents ED for evaluation. Brought in by EMS for bilateral foot pain from home. States she has had this pain for years. Describes pain to both feet. Throbbing, 8 out of 10, nonradiating. Denies any recent fall or injuries. He is able to bear weight but with difficulty. No other aggravating or relieving factors. Denies any other associated symptoms Allergies: Coded Allergies: ERYTHROMYCIN BASE (Verified Allergy, Unknown, 02/22/17) IBUPROFEN (Unverified Allergy, Unknown, 02/22/17) KETOROLAC (Verified Allergy, Unknown, 02/22/17) ZOLPIDEM (Unverified Allergy, Unknown, 02/22/17) Patient History Past Medical History: HTN, CHF, GERD, GI bleed Past Surgical History: none Pertinent Family History: none Social History: Denies: smoking, alcohol use, drug use Now: No Immunizations: UTD Reviewed Nursing Documentation: PMH: Agreed; PSxH: Agreed Nursing Documentation-PMH Hx Cardiac Problems: Yes - Artherosclerosis, CHF Hx Hypertension: Yes Hx Asthma: Yes Hx Gastrointestinal Problems: Yes - GI ulcers, Gastritis Review of Systems All Other Systems: negative except mentioned in HPI Physical Exam Vital Signs Date Time Temp Pulse Resp B/P (MAP) Pulse Ox O2 Delivery O2 Flow Rate FiO2 03/04/19 16:31 99.3 75 19 161/111 (128) 96 Room Air Sp02 EP Interpretation: reviewed, normal General Appearance: no apparent distress, alert, GCS 15, non-toxic, thin Head: normocephalic Eyes: bilateral eye normal inspection, bilateral eye PERRL ENT: normal ENT inspection Neck: normal inspection Respiratory: normal inspection Cardiovascular #1: normal inspection Gastrointestinal: normal inspection Rectal: deferred Genitourinary: no CVA tenderness Musculoskeletal: tender - bilateral feet Neurologic: alert, oriented x3, responsive, motor strength/tone normal, sensory intact, speech normal Psychiatric: normal inspection Skin: normal inspection Lymphatic: normal inspection Medical Decision Making Diagnostic Impression: Primary Impression: Chronic pain Qualified Codes: G89.4 - Chronic pain syndrome ER Course Hospital Course 64-year-old F presents to ED complaining of bilateral foot pain Differential diagnoses include: Fracture, dislocation, sprain, contusion Clinical course Patient placed on stretcher. After initial history and physical, I ordered pain medications and Xrays of bilatearl feet Xrays prelim read shows no acute fracture/dislocation. Reviewed EMR. Patient has been here multiple times for chronic pain related complaints. I reviewed CURES patient is receiving monthly prescriptions for narcotics. I recommend that patient has to be evaluated by her PMD or pain management. I will provide referrals to orthopedics. Diagnosis - chronic pain Stable and discharged to home with prescription for tylenol. apply ice, keep elevated. weight bear as tolerated. Followup with PMD/ortho. Return to ED if symptoms recur or worsen Other X-Ray Diagnostic Results Other X-Ray Diagnostic Results #1: X-Ray ordered: R foot # of Views/Limited Vs Complete: 3 View Indication: Pain EP Interpretation: Yes Interpretation: no dislocation, no soft tissue swelling, no fractures Impression: No acute disease Electronically Signed by: Electronically signed by Campbell Padgett MD Other X-Ray Diagnostic Results #2: X-Ray ordered: L foot # of Views/Limited Vs Complete: 3 View Indication: Pain EP Interpretation: Yes Interpretation: no dislocation, no soft tissue swelling, no fractures Impression: No acute disease Electronically Signed by: Electronically signed by Campbell Padgett MD Last Vital Signs Date Time Temp Pulse Resp B/P (MAP) Pulse Ox O2 Delivery O2 Flow Rate FiO2 03/04/19 17:51 99.3 75 19 156/89 96 Room Air Status: improved Disposition: HOME, SELF-CARE Condition: Stable Scripts Acetaminophen* (TYLENOL EXTRA STRENGTH*) 500 Mg Tablet 500 MG ORAL Q8H PRN for Prn Headache/Temp > 101, #30 TAB 0 Refills Prov: Campbell Padgett MD 03/04/19 Referrals: [facility],REFERRING (PCP) [facility] Open 24 hour /7 days a week by Appointment Only [address] [facility] [address] Patient Instructions: Chronic Pain Campbell Padgett MD Mar 04, 2019 19:14
--- NOTE | 2019-03-05 13:30 | Diagnostic Imaging Report ---
Indication: Foot Pain Comparison: None Findings: 3 views of the right foot were obtained. No acute fracture identified. There is hallux valgus deformity. There is moderate generalized osteopenia. There is loss of the plantar arch. IMPRESSION: No acute injury
--- NOTE | 2019-03-05 13:31 | Diagnostic Imaging Report ---
Indication: Left foot injury pain Comparison: None Findings: 3 views of the left foot were obtained. Hallux valgus deformity and generalized osteopenia are noted. No acute fracture is identified. There is loss of the plantar arch. IMPRESSION: No acute fracture identified
== END 2019-03-04 17:51 | disposition home or self-care (01) ==
LOC: EDBD 16:37 → EMR 17:41
DX: G89.4 Chronic pain syndrome (principal); M25.572 Pain in left ankle and joints of left foot; M25.571 Pain in right ankle and joints of right foot; Z88.6 Allergy status to analgesic agent; Z88.8 Allergy status to other drugs, medicaments and biological substances; I11.0 Hypertensive heart disease with heart failure; I50.9 Heart failure, unspecified; K21.9 Gastro-esophageal reflux disease without esophagitis
CPT/HCPCS: 99284

== ENCOUNTER 2019-07-04 20:34 | Emergency (ER) | payer MEDICAID ==
[~2019-07-04] VITALS: Ht 157.5 cm; Wt 44.5 kg
--- NOTE | 2019-07-04 20:41 | NUR ---
ED Nurse Note: pt brought in by ambulance from home for C/O SOB. pt is alert x4. pt states she has hx of PNA. VSS at this time.
[2019-07-04 20:42] VITALS: BP 157/94
--- NOTE | 2019-07-04 21:25 | Emergency Room Report ---
History of Present Illness General Chief Complaint: Dyspnea/Respdistress Source: Patient Present Illness HPI T4-year-old female with a history of chronic pain with fibromyalgia for which she takes [place]. She presents with chief complaint of shortness of breath. She said she been having this for about a week. On and off. Also with some chest pain which she told me. She just finished a course of antibiotics. Also finished a course of cough medicine and out of her [place]. Denies any fever chills but no longer coughing. Nothing made it better. Nothing made it worse. Denies any nausea or vomiting. Denies any diaphoresis. No exertional component. Allergies: Coded Allergies: ERYTHROMYCIN BASE (Verified Allergy, Unknown, 02/22/17) IBUPROFEN (Unverified Allergy, Unknown, 02/22/17) KETOROLAC (Verified Allergy, Unknown, 02/22/17) ZOLPIDEM (Unverified Allergy, Unknown, 02/22/17) Patient History Past Medical History: see triage record, old chart reviewed, HTN, CAD Past Surgical History: none Pertinent Family History: none Social History: Reports: smoking Now: No Immunizations: other Reviewed Nursing Documentation: PMH: Agreed; PSxH: Agreed Nursing Documentation-PMH Past Medical History: No History, Except For Hx Cardiac Problems: Yes - Artherosclerosis, CHF Hx Hypertension: Yes Hx Asthma: Yes Hx Gastrointestinal Problems: Yes - GI ulcers, Gastritis Review of Systems Eye: Denies: eye pain, blurred vision ENT: Denies: ear pain, nose congestion, throat swelling Respiratory: Reports: shortness of breath; Denies: cough Cardiovascular: Reports: chest pain; Denies: palpitations Gastrointestinal: Denies: abdominal pain, diarrhea, nausea, vomiting Musculoskeletal: Denies: back pain, joint pain Skin: Denies: rash Neurological: Denies: headache, numbness Endocrine: Denies: increased thirst, increased urine Hematologic/Lymphatic: Denies: easy bruising All Other Systems: negative except mentioned in HPI Physical Exam Vital Signs Date Time Temp Pulse Resp B/P (MAP) Pulse Ox O2 Delivery O2 Flow Rate FiO2 07/04/19 20:35 97.9 84 20 174/110 (131) 100 Room Air 07/04/19 20:42 100 Vitals with high blood pressure Sp02 EP Interpretation: reviewed, normal General Appearance: well appearing, no apparent distress, alert Head: normocephalic, atraumatic Eyes: bilateral eye PERRL, bilateral eye EOMI ENT: hearing grossly normal, normal pharynx Neck: full range of motion, supple, no meningismus Respiratory: chest non-tender, lungs clear, normal breath sounds Cardiovascular #1: regular rate, rhythm, no murmur Gastrointestinal: normal bowel sounds, non tender, no mass, no organomegaly, no bruit, non-distended Musculoskeletal: back normal, gait/station normal, normal range of motion Psychiatric: mood/affect normal Medical Decision Making Diagnostic Impression: Primary Impression: Chest pain Qualified Codes: R07.9 - Chest pain, unspecified Additional Impression: Chronic pain Qualified Codes: G89.4 - Chronic pain syndrome ER Course Patient presents with atypical chest pain. Pain been ongoing for several days. See no evidence of ACS, PE, dissection to name a few. EKG is normal. Troponin 0. She is been sleeping comfortable here. She refused to give a urine sample. She also states she is out of her [place]. I explained to her that she needs to follow-up with her primary care doctor for refill on that. EKG Diagnostic Results Rate: normal Rhythm: NSR ST Segments: no acute changes Rhythm Strip Diag. Results EP Interpretation: yes Rate: 60 Rhythm: NSR, no PVC's, no ectopy Chest X-Ray Diagnostic Results Chest X-Ray Diagnostic Results : Chest X-Ray Ordered: Yes # of Views/Limited/Complete: 1 View Indication: Chest Pain EP Interpretation: Yes Interpretation: no consolidation, no effusion, no pneumothorax, no acute cardiopulmonary disease Impression: No acute disease Electronically Signed by: Altaf Heredia MD Last Vital Signs Date Time Temp Pulse Resp B/P (MAP) Pulse Ox O2 Delivery O2 Flow Rate FiO2 07/04/19 20:42 98.0 70 19 157/94 100 Room Air 07/04/19 20:42 100 Status: improved Disposition: HOME, SELF-CARE Condition: Stable Scripts Acetaminophen* (ACETAMINOPHEN EXTRA STRENGTH*) 500 Mg Tablet 500 MG ORAL Q8H PRN for Fever/Headache/Mild Pain, #30 TAB Prov: Altaf Heredia MD 07/04/19 Additional Instructions: Follow-up with your doctor in 7 days. See your doctor for refill your pain medication. Return if symptoms worsen. Altaf Heredia MD Jul 04, 2019:25
--- NOTE | 2019-07-04 21:47 | NUR ---
ED Nurse Note: blood sample sent down to lab. pt unable to urinate at this time. pt is aware that she needs to provide urine. pt verbalized she will notify staff when she is ready to urinate.
[2019-07-04 22:10] LABS: ANION GAP 13 mmol/L (5-15); BLOOD UREA NITROGEN 12 mg/dL (7-18); CALCIUM 8.7 MG/DL (8.5-10.1); CARBON DIOXIDE 25 MMOL/L (21-32); CHLORIDE 110 MMOL/L (98-107); POTASSIUM 3.8 MMOL/L (3.5-5.1); SODIUM 148 MMOL/L (136-145)
[2019-07-04 22:11] LABS: BASOPHILS % (AUTO) 1.8 % (0.0-2.0); EOSINOPHILS % (AUTO) 1.7 % (0.0-3.0); HEMATOCRIT 38.8 % (37.0-47.0); HEMOGLOBIN 12.6 G/DL (12.0-16.0); LYMPHOCYTES % (AUTO) 37.1 % (20.0-45.0); MEAN CORPUSCULAR VOLUME 86 FL (80-99); MONOCYTES % (AUTO) 7.4 % (1.0-10.0); PLATELET COUNT 128 K/UL (150-450); RED BLOOD COUNT 4.52 M/UL (4.20-5.40); RED CELL DISTRIBUTION WIDTH 14.8 % (11.6-14.8); WHITE BLOOD COUNT 4.8 K/UL (4.8-10.8)
[2019-07-04 22:14] LABS: ALANINE AMINOTRANSFERASE 38 U/L (12-78); ALBUMIN 3.5 G/DL (3.4-5.0); ALBUMIN/GLOBULIN RATIO 0.9 (1.0-2.7); ALKALINE PHOSPHATASE 91 U/L (46-116); ASPARTATE AMINO TRANSFERASE 25 U/L (15-37); BILIRUBIN,TOTAL 0.2 MG/DL (0.2-1.0)
[2019-07-04] MEDS ORDERED: ACETAMINOPHEN500 M3 ORAL (22:39)
--- NOTE | 2019-07-04 22:39 | NUR ---
ED Nurse Note: pt unable to proide urine still. ERMD aware.
[2019-07-04 22:40] VITALS: BP 140/84
--- NOTE | 2019-07-04 22:50 | NUR ---
ER DISCHARGE NOTE: Patient is cleared to be discharged per ERMD, pt is aox4, on room air, with stable vital signs. pt was given dc and prescription instructions, pt was able to verbalize understanding, pt id band and iv site removed without complications. pt is able to ambulate with steady gait. pt took all belongings.
--- NOTE | 2019-07-05 12:19 | Diagnostic Imaging Report ---
Indication: Chest pain Technique: One view of the chest Comparison: 01/13/2019 Findings: Lungs and pleural spaces are clear. Heart size is normal. Is redemonstrated right upper lung peripheral opacities are no longer evident. Impression: No acute process
== END 2019-07-04 22:50 | disposition home or self-care (01) ==
LOC: EDBD 20:34 → EDUNIT# 20:34 → EMR 21:08
DX: R07.9 Chest pain, unspecified (principal); G89.4 Chronic pain syndrome; I11.0 Hypertensive heart disease with heart failure; I50.9 Heart failure, unspecified; J45.909 Unspecified asthma, uncomplicated; F17.200 Nicotine dependence, unspecified, uncomplicated; Z88.1 Allergy status to other antibiotic agents; Z88.8 Allergy status to other drugs, medicaments and biological substances; M79.7 Fibromyalgia
CPT/HCPCS: 36415; 71045; 80053; 84484; 85025; 93005; 96360; G0480; Z7502; 99284

== ENCOUNTER 2019-09-01 16:02 | Emergency (ER) | payer MEDICAID ==
[~2019-09-01] VITALS: Ht 162.6 cm; Wt 49.9 kg
[~2019-09-01 16:02] MED LIST changes: +ACETAMINOPHEN500 M3 ORAL
[2019-09-01 16:10] VITALS: BP 165/90
--- NOTE | 2019-09-01 16:10 | NUR ---
ED Nurse Note: PT FROM HOME CAME IN DUE TO FLU LIKE SYMPTOMS(BODYACHES, HEADACHE, COUGHING) FOR A COUPLE OF DAYS. PT ALOS C/O RIGHT EARACHE THAT RADIATES TO HER FACE. AAO X4, AMBULATORY WITH NON LABORED BREATHING.
--- NOTE | 2019-09-01 16:47 | NUR ---
ED Nurse Note: COLLECTED BLOOD AND FLU SWAB THEN SENT.
[2019-09-01] MEDS ORDERED: Albuterol/Ipratropium 3ml neb HHN ONE (17:00)
[2019-09-01 17:25] LABS: EOSINOPHILS % (AUTO) 0.7 % (0.0-3.0); HEMATOCRIT 35.9 % (37.0-47.0); HEMOGLOBIN 11.6 G/DL (12.0-16.0); LYMPHOCYTES % (AUTO) 16.8 % (20.0-45.0); MEAN CORPUSCULAR VOLUME 82 FL (80-99); MONOCYTES % (AUTO) 9.5 % (1.0-10.0); NEUTROPHILS % (AUTO) 72.1 % (45.0-75.0); PLATELET COUNT 146 K/UL (150-450); RED BLOOD COUNT 4.36 M/UL (4.20-5.40); WHITE BLOOD COUNT 5.8 K/UL (4.8-10.8)
[2019-09-01 17:26] LABS: INR 0.9 (0.9-1.1)
--- NOTE | 2019-09-01 17:38 | NUR ---
ED Nurse Note: COLLECTED URINE THEN SENT.
--- NOTE | 2019-09-01 17:40 | NUR ---
ED Nurse Note: CALLED RT FOR BREATHING TREATMENT.
--- NOTE | 2019-09-01 17:48 | NUR ---
ED Nurse Note: RT BRADLEY AT THE BED SIDE FOR BREATHING TREATMENT.
[2019-09-01 17:53] LABS: APPEARANCE,URINE CLEAR; BILIRUBIN, URINE NEGATIVE (NEGATIVE); COLOR,URINE PALE YELLOW; GLUCOSE, URINE (UA) NEGATIVE (NEGATIVE); KETONES,URINE NEGATIVE (NEGATIVE); LEUKOCYTE ESTERASE ,URINE 1+ (NEGATIVE); NITRITE,URINE NEGATIVE (NEGATIVE); PH,URINE 7 (4.5-8.0); PROTEIN,URINE 1+ (NEGATIVE); UROBILINOGEN,URINE NORMAL MG/DL (0.0-1.0)
[2019-09-01 18:05] LABS: BLOOD UREA NITROGEN 7 mg/dL (7-18); CARBON DIOXIDE 23 MMOL/L (21-32); CHLORIDE 106 MMOL/L (98-107); CREATININE 0.8 MG/DL (0.55-1.30); POTASSIUM 3.5 MMOL/L (3.5-5.1); SODIUM 141 MMOL/L (136-145)
[2019-09-01 18:06] LABS: ANION GAP 12 mmol/L (5-15); CALCIUM 8.8 MG/DL (8.5-10.1)
[2019-09-01 18:08] LABS: ALANINE AMINOTRANSFERASE 29 U/L (12-78); ALBUMIN/GLOBULIN RATIO 0.6 (1.0-2.7); ALKALINE PHOSPHATASE 122 U/L (46-116); ASPARTATE AMINO TRANSFERASE 30 U/L (15-37); BILIRUBIN,TOTAL 0.1 MG/DL (0.2-1.0)
[2019-09-01 18:10] VITALS: BP 158/92
[2019-09-01] MEDS ORDERED: ALBUTEROL SULF8.5 GM INH (18:31)
[2019-09-01] MEDS ORDERED: AUGMENTIN 875-1 EAC1 ORAL (18:31)
[2019-09-01 18:54] VITALS: BP 157/89
--- NOTE | 2019-09-01 19:50 | Emergency Room Report ---
History of Present Illness General Chief Complaint: Flu Like Symptoms Source: Patient, Medical Record Present Illness HPI Patient is a 64-year-old female presents after increased earache and congestion. She reports having gradual onset of symptoms. She had prior history of COPD. She reports having recently taken Keflex without any improvement in the pain to her ears. She denies any chest discomfort. She states that she had having some nonproductive cough.Denies any fever. Allergies: Coded Allergies: ERYTHROMYCIN BASE (Verified Allergy, Unknown, 02/22/17) IBUPROFEN (Unverified Allergy, Unknown, 02/22/17) KETOROLAC (Verified Allergy, Unknown, 02/22/17) ZOLPIDEM (Unverified Allergy, Unknown, 02/22/17) Uncoded Allergies: ERYTHROMYCIN (Allergy, Unknown, 09/01/19) Patient History Past Medical History: COPD Reviewed Nursing Documentation: PMH: Agreed; PSxH: Agreed Nursing Documentation-PMH Past Medical History: No History, Except For Hx Cardiac Problems: Yes - Artherosclerosis, CHF Hx Hypertension: Yes Hx Asthma: Yes Hx Gastrointestinal Problems: Yes - GI ulcers, Gastritis Review of Systems All Other Systems: negative except mentioned in HPI Physical Exam Vital Signs Date Time Temp Pulse Resp B/P (MAP) Pulse Ox O2 Delivery O2 Flow Rate FiO2 09/01/19 16:02 99.0 87 18 177/106 (129) 97 Room Air 09/01/19 17:49 21 Sp02 EP Interpretation: reviewed, normal General Appearance: normal inspection, alert, GCS 15 Head: atraumatic ENT: normal ENT inspection, hearing grossly normal, normal voice Neck: normal inspection, full range of motion, supple, no bony tend Respiratory: normal inspection, lungs clear, no respiratory distress, no retraction, no wheezing Cardiovascular #1: regular rate, rhythm, no edema Gastrointestinal: normal inspection, normal bowel sounds, non tender, soft, no guarding, no hernia Genitourinary: no CVA tenderness Musculoskeletal: normal inspection, back normal, normal range of motion Neurologic: alert, motor strength/tone normal, manager of investigations III-XII nml as tested, oriented x3, responsive, speech normal, normal inspection Psychiatric: normal inspection, judgement/insight normal, mood/affect normal Skin: palpation normal Medical Decision Making Diagnostic Impression: Primary Impression: Earache Additional Impression: COPD exacerbation ER Course Patient presented for earache. Differential diagnosis include was not limited to otitis media, external otitis, eustachian tube dysfunction, among others. Because of complexity of patient's case laboratory tests and imaging studies were ordered. Patient's laboratory testing was unremarkable. Patient does not appear to have any evidence of pneumonia. Chest x-ray 1 view interpreted by me showed COPD changes. Patient was given prescription for oral antibiotics. She is advised to follow-up with her primary care physician for recheck. She advised return if worse. This medical record is generated with [email or web address] production cook software. There may be some production cook discrepancies related to use of this software Labs Test 09/01/19 16:40 09/01/19 17:35 White Blood Count 5.8 K/UL (4.8-10.8) Red Blood Count 4.36 M/UL (4.20-5.40) Hemoglobin 11.6 G/DL (12.0-16.0) Hematocrit 35.9 % (37.0-47.0) Mean Corpuscular Volume 82 FL (80-99) Mean Corpuscular Hemoglobin 26.6 PG (27.0-31.0) Mean Corpuscular Hemoglobin Concent 32.3 G/DL (32.0-36.0) Red Cell Distribution Width 14.0 % (11.6-14.8) Platelet Count 146 K/UL (150-450) Mean Platelet Volume 6.7 FL (6.5-10.1) Neutrophils (%) (Auto) 72.1 % (45.0-75.0) Lymphocytes (%) (Auto) 16.8 % (20.0-45.0) Monocytes (%) (Auto) 9.5 % (1.0-10.0) Eosinophils (%) (Auto) 0.7 % (0.0-3.0) Basophils (%) (Auto) 1.0 % (0.0-2.0) Prothrombin Time 10.1 SEC (9.30-11.50) Prothromb Time International Ratio 0.9 (0.9-1.1) Activated Partial Thromboplast Time 28 SEC (23-33) Sodium Level 141 MMOL/L (136-145) Potassium Level 3.5 MMOL/L (3.5-5.1) Chloride Level 106 MMOL/L (98-107) Carbon Dioxide Level 23 MMOL/L (21-32) Anion Gap 12 mmol/L (5-15) Blood Urea Nitrogen 7 mg/dL (7-18) Creatinine 0.8 MG/DL (0.55-1.30) Estimat Glomerular Filtration Rate > 60 mL/min (>60) Glucose Level 102 MG/DL (74-106) Calcium Level 8.8 MG/DL (8.5-10.1) Total Bilirubin 0.1 MG/DL (0.2-1.0) Aspartate Amino Transf (AST/SGOT) 30 U/L (15-37) Alanine Aminotransferase (ALT/SGPT) 29 U/L (12-78) Alkaline Phosphatase 122 U/L (46-116) Troponin I 0.007 ng/mL (0.000-0.056) Total Protein 8.2 G/DL (6.4-8.2) Albumin 3.0 G/DL (3.4-5.0) Globulin 5.2 g/dL Albumin/Globulin Ratio 0.6 (1.0-2.7) Urine Color Pale yellow Urine Appearance Clear Urine pH 7 (4.5-8.0) Urine Specific [place] 1.005 (1.005-1.035) Urine Protein 1+ (NEGATIVE) Urine Glucose (UA) Negative (NEGATIVE) Urine Ketones Negative (NEGATIVE) Urine Blood Negative (NEGATIVE) Urine Nitrite Negative (NEGATIVE) Urine Bilirubin Negative (NEGATIVE) Urine Urobilinogen Normal MG/DL (0.0-1.0) Urine Leukocyte Esterase 1+ (NEGATIVE) Urine RBC 0 /HPF (0 - 2) Urine WBC 0-2 /HPF (0 - 2) Urine Squamous Epithelial Cells Occasional /LPF Urine Bacteria Occasional /HPF (NONE) EKG Diagnostic Results Rate: normal Rhythm: NSR ST Segments: no acute changes Last Vital Signs Date Time Temp Pulse Resp B/P (MAP) Pulse Ox O2 Delivery O2 Flow Rate FiO2 09/01/19 18:54 98.7 79 20 157/89 100 Room Air 09/01/19 17:49 21 Status: improved Disposition: HOME, SELF-CARE Scripts Albuterol Sulfate* (ALBUTEROL SULFATE MDI*) 8.5 Gm Hfa.aer.ad 2 PUFF INH Q4H PRN for cough/wheezing, #1 EA 0 Refills Prov: Jean Shelton MD 09/01/19 Amoxicillin/Potassium Clav 875-125* (AUGMENTIN 875-125 TABLET*) 1 Each Tablet 1 TAB ORAL TWICE A DAY, #14 TAB Prov: Jean Shelton MD 09/01/19 Patient Instructions: Chronic Obstructive Pulmonary Disease Exacerbation Jean Shelton MD Sep 01, 2019 19:50
--- NOTE | 2019-09-02 12:46 | Diagnostic Imaging Report ---
Indication: Dyspnea Comparison: 07/04/2019 A single view chest radiograph was obtained. Findings: There is ill-defined density in the right upper lobe again demonstrated likely scarring. The heart is borderline enlarged. The aorta is mildly ectatic. No pleural effusion seen. Bones are osteopenic. IMPRESSION: No acute disease. Scarring in the right upper lobe
== END 2019-09-01 18:54 | disposition home or self-care (01) ==
LOC: EDBD 16:02 → EMR 16:30
DX: H92.03 Otalgia, bilateral (principal); Z88.6 Allergy status to analgesic agent; Z88.8 Allergy status to other drugs, medicaments and biological substances; I11.0 Hypertensive heart disease with heart failure; I50.9 Heart failure, unspecified; R05 Cough; J44.1 Chronic obstructive pulmonary disease with (acute) exacerbation
CPT/HCPCS: 36415; 71045; 80053; 81003; 84484; 85025; 85610; 85730; 86710; 87040; 93005; Z7502; 99284; J7620

== ENCOUNTER 2020-07-28 11:49 | Emergency (ER) | payer MEDICARE, MEDICAID ==
[~2020-07-28] VITALS: Ht 154.9 cm; Wt 43.1 kg
[~2020-07-28 11:49] MED LIST changes: +AUGMENTIN 875-1 EAC1 ORAL
--- NOTE | 2020-07-28 12:09 | NUR ---
ED Nurse Note: pt presents to ED with dysuria and hematuria for a few weeks. pt describes that it feels like someone is "punching her" the pain radiates to her back. pt denies fevers/chills or N/V at this time
[2020-07-28 12:10] VITALS: BP 134/94
[2020-07-28 13:05] LABS: APPEARANCE,URINE TURBID; BILIRUBIN, URINE NEGATIVE (NEGATIVE); COLOR,URINE RED; GLUCOSE, URINE (UA) NEGATIVE (NEGATIVE); LEUKOCYTE ESTERASE ,URINE NEGATIVE (NEGATIVE); NITRITE,URINE NEGATIVE (NEGATIVE); PROTEIN,URINE 4+ (NEGATIVE); UROBILINOGEN,URINE NORMAL MG/DL (0.0-1.0)
[2020-07-28] MEDS ORDERED: Omnipaque-300 100ml vial INJ PRN (13:15)
[2020-07-28] MEDS ORDERED: Morphine Sulfate 2mg/ml Inj(IV/IM USE ONLY) IVP ONE (13:15)
[2020-07-28 13:27] LABS: KETONES,URINE NEGATIVE (NEGATIVE); PH,URINE 6 (4.5-8.0)
[2020-07-28 13:36] LABS: HEMATOCRIT 38.8 % (37.0-47.0); MEAN CORPUSCULAR VOLUME 86 FL (80-99); RED BLOOD COUNT 4.52 M/UL (4.20-5.40); RED CELL DISTRIBUTION WIDTH 16.4 % (11.6-14.8); WHITE BLOOD COUNT 5.4 K/UL (4.8-10.8)
--- NOTE | 2020-07-28 13:49 | Emergency Room Report ---
History of Present Illness General Chief Complaint: Female Urogenital Problems Present Illness HPI 65-year-old female with history of hypertension, anemia, rheumatoid arthritis, and peripheral neuropathy here complaining of 3 days of gross hematuria. Denies vaginal bleeding when not urinating. Denies any diffuse abdominal pain at this time only complains of pain in pubic area. Denies chills, vomiting, diarrhea. Denies any bloody stools. Complains of minimal fatigue and weakness. Denies any trauma to the vaginal area. Has not taken medication for symptom relief. Denies any recent weight loss. Denies cough and congestion, night sweats, and all other URI symptoms. Denies chest pain shortness of breath. Allergies: Coded Allergies: ERYTHROMYCIN BASE (Verified Allergy, Unknown, 02/22/17) IBUPROFEN (Unverified Allergy, Unknown, 02/22/17) KETOROLAC (Verified Allergy, Unknown, 02/22/17) ZOLPIDEM (Unverified Allergy, Unknown, 02/22/17) Uncoded Allergies: ERYTHROMYCIN (Allergy, Unknown, 09/01/19) COVID-19 Screening Contact w/high risk pt: No Experienced COVID-19 symptoms?: No COVID-19 Testing performed MANAGER PROVIDER RELATIONS: No Patient History Past Medical History: see triage record Past Surgical History: none Pertinent Family History: none Now: No Immunizations: UTD Reviewed Nursing Documentation: PMH: Agreed; PSxH: Agreed Nursing Documentation-PMH Hx Cardiac Problems: Yes - Artherosclerosis, CHF Hx Hypertension: Yes Hx Asthma: Yes Hx Gastrointestinal Problems: Yes - GI ulcers, Gastritis Review of Systems All Other Systems: negative except mentioned in HPI Physical Exam Vital Signs Date Time Temp Pulse Resp B/P (MAP) Pulse Ox O2 Delivery O2 Flow Rate FiO2 07/28/20 12:04 99.3 100 19 134/94 (107) 99 Room Air Sp02 EP Interpretation: reviewed, normal General Appearance: no apparent distress, alert, GCS 15, non-toxic Head: normocephalic, atraumatic Eyes: bilateral eye normal inspection, bilateral eye PERRL ENT: hearing grossly normal, normal pharynx, no angioedema, normal voice Neck: full range of motion, supple/symm/no masses Respiratory: chest non-tender, lungs clear, normal breath sounds, speaking full sentences Cardiovascular #1: regular rate, rhythm, no edema Cardiovascular #2: 2+ carotid (R), 2+ carotid (L), 2+ radial (R), 2+ radial (L), 2+ dorsalis pedis (R), 2+ dorsalis pedis (L) Gastrointestinal: normal bowel sounds, non tender, soft, no mass, no organomegaly, no peritonitis, non-distended, no guarding, no hernia, no pulsatile mass, no rebound Genitourinary: no CVA tenderness Musculoskeletal: back normal, no calf tenderness Neurologic: alert, motor strength/tone normal, oriented x3, sensory intact, responsive, speech normal Psychiatric: judgement/insight normal, memory normal, mood/affect normal, no suicidal/homicidal ideation Skin: no rash Lymphatic: no adenopathy Medical Decision Making PA Attestation ALL Diagnosis and treatment plan reviewed and discussed with my supervising physician Dr. Castro Diagnostic Impression: Primary Impression: Renal stone Additional Impression: Colitis ER Course 65-year-old female with history of hypertension, anemia, rheumatoid arthritis, and peripheral neuropathy here complaining of 3 days of gross hematuria. Denies vaginal bleeding when not urinating. Denies any diffuse abdominal pain at this time only complains of pain in pubic area. Denies chills, vomiting, diarrhea. Denies any bloody stools. Complains of minimal fatigue and weakness. Denies any trauma to the vaginal area. Has not taken medication for symptom relief. Denies any recent weight loss. Denies cough and congestion, night sweats, and all other URI symptoms. Denies chest pain shortness of breath. Ddx considered but are not limited to: appendicitis, cholecystis, gastritis, gastroenteritis, UTI, pyelonephritis, SBO, diverticulitis, endometriosis, endometrial mass Vital signs: are WNL, pt. is afebrile H&PE are most consistent with: renal stone non obstructive, colitis ORDERS: abdominal CT, abdominal pain set, EKG, troponin, chest x-ray, keflex ED INTERVENTIONS: NS bolus, morphine DISCHARGE: At this time pt. is stable for d/c to home. Will provide printed patient care instructions, and any necessary prescriptions. Care plan and follow up instructions have been discussed with the patient prior to discharge. Take medication as directed, follow-up with urologist, increase oral hydration, if worsening symptoms return to the emergency. Also increase your fiber intake EKG Diagnostic Results Rate: normal Rhythm: NSR ST Segments: no acute changes Other Impression No acute ST changes ASA given to the pt in ED: No Chest X-Ray Diagnostic Results Chest X-Ray Diagnostic Results : Chest X-Ray Ordered: Yes # of Views/Limited/Complete: 1 View Indication: Other EP Interpretation: Yes PA Xray: Interpretation reviewed, by supervising MD, and agrees with findings. Interpretation: no consolidation, no effusion, no pneumothorax, no acute cardiopulmonary disease Impression: No acute disease Electronically Signed by: Primo Chong PA-C CT/MRI/US Diagnostic Results CT/MRI/US Diagnostic Results : Imaging Test Ordered: CT abd pelvis with contrast Impression FINDINGS: Lung bases: Mild linear and dependent atelectasis in the right lung base. ABDOMEN: Liver: Unremarkable. No suspicious parenchymal lesions Gallbladder and bile ducts: Unremarkable. No calcified stones. No ductal dilation. Pancreas: Unremarkable. No mass. No ductal dilation. Spleen: Unremarkable. No splenomegaly. Adrenals: Unremarkable. No mass. Kidneys and ureters: 3 mm nonobstructive stone in the right upper renal pole. Possible 2 mm nonobstructive stone in the left lower renal pole versus early urinary contrast excretion. 1.2 cm simple-appearing cortical cyst in the right lower renal pole. No hydronephrosis or hydroureter. No perinephric stranding. Stomach and bowel: Mild wall thickening of the proximal and mid descending colon. Remainder of the colon appears unremarkable. No abnormally distended loops of small bowel. GE junction and stomach appear unremarkable. PELVIS: Appendix: Appendix is not definitively identified however no inflammatory changes are seen in the right lower quadrant. Bladder: Unremarkable. No visible stones. Reproductive: Unremarkable as visualized. ABDOMEN and PELVIS: Intraperitoneal space: Unremarkable. No free air. No significant fluid collection. Bones/joints: Moderate degenerative disc space loss at L5-S1. No acute fracture. No dislocation. Soft tissues: Unremarkable. Vasculature: Atherosclerosis throughout the abdominal aorta and its proximal branches. No abdominal aortic aneurysm. Lymph nodes: Unremarkable. No enlarged lymph nodes. IMPRESSION: 1. Mild wall thickening of the proximal and mid descending colon. This may be related to underdistention versus a mild colitis. No adjacent inflammatory changes, free air, or fluid collections. 2. 3 mm nonobstructive stone in the right upper renal pole. 3. Possible 2 mm nonobstructive stone in the left lower renal pole versus early urinary contrast excretion. 4. 1.2 cm simple-appearing cortical cyst in the right lower renal pole. Last Vital Signs Date Time Temp Pulse Resp B/P (MAP) Pulse Ox O2 Delivery O2 Flow Rate FiO2 07/28/20 12:10 99.3 89 19 134/94 99 Room Air Disposition: HOME, SELF-CARE Condition: Stable Referrals: NOT CHOSEN IPA/MD,REFERRING (PCP) Patient Instructions: Colitis, Renal Colic, [id number] Additional Instructions: Take medication as directed, follow-up with urologist, increase oral hydration, if worsening symptoms return to the emergency. Also increase your fiber intake Primo Blandon Jul 28, 2020 13:49
[2020-07-28 14:12] LABS: PLATELET COUNT 139 K/UL (150-450)
[2020-07-28 14:39] LABS: CREATININE 1.2 MG/DL (0.55-1.30); POTASSIUM 3.4 MMOL/L (3.5-5.1)
[2020-07-28 14:51] LABS: ALBUMIN 3.1 G/DL (3.4-5.0); ALBUMIN/GLOBULIN RATIO 0.8 (1.0-2.7); BILIRUBIN,TOTAL 0.2 MG/DL (0.2-1.0)
[2020-07-28 15:00] VITALS: BP 127/67
--- NOTE | 2020-07-28 16:16 | Diagnostic Imaging Report ---
EXAM: CT Abdomen and Pelvis With Intravenous Contrast CLINICAL HISTORY: PAIN TECHNIQUE: Axial computed tomography images of the abdomen and pelvis with intravenous contrast. Sagittal and coronal reformatted images were created and reviewed. CTDI is 2.8 mGy and DLP is 126.6 mGy-cm. One or more of the following dose reduction techniques were used: automated exposure control, adjustment of the mA and/or kV according to patient size, use of iterative reconstruction technique. COMPARISON: CT abdomen pelvis dated 12/21/16 FINDINGS: Lung bases: Mild linear and dependent atelectasis in the right lung base. ABDOMEN: Liver: Unremarkable. No suspicious parenchymal lesions Gallbladder and bile ducts: Unremarkable. No calcified stones. No ductal dilation. Pancreas: Unremarkable. No mass. No ductal dilation. Spleen: Unremarkable. No splenomegaly. Adrenals: Unremarkable. No mass. Kidneys and ureters: 3 mm nonobstructive stone in the right upper renal pole. Possible 2 mm nonobstructive stone in the left lower renal pole versus early urinary contrast excretion. 1.2 cm simple-appearing cortical cyst in the right lower renal pole. No hydronephrosis or hydroureter. No perinephric stranding. Stomach and bowel: Mild wall thickening of the proximal and mid descending colon. Remainder of the colon appears unremarkable. No abnormally distended loops of small bowel. GE junction and stomach appear unremarkable. PELVIS: Appendix: Appendix is not definitively identified however no inflammatory changes are seen in the right lower quadrant. Bladder: Unremarkable. No visible stones. Reproductive: Unremarkable as visualized. ABDOMEN and PELVIS: Intraperitoneal space: Unremarkable. No free air. No significant fluid collection. Bones/joints: Moderate degenerative disc space loss at L5-S1. No acute fracture. No dislocation. Soft tissues: Unremarkable. Vasculature: Atherosclerosis throughout the abdominal aorta and its proximal branches. No abdominal aortic aneurysm. Lymph nodes: Unremarkable. No enlarged lymph nodes. IMPRESSION: 1. Mild wall thickening of the proximal and mid descending colon. This may be related to underdistention versus a mild colitis. No adjacent inflammatory changes, free air, or fluid collections. 2. 3 mm nonobstructive stone in the right upper renal pole. 3. Possible 2 mm nonobstructive stone in the left lower renal pole versus early urinary contrast excretion. 4. 1.2 cm simple-appearing cortical cyst in the right lower renal pole.
[2020-07-28] MEDS ORDERED: NITROFURANTOIN100 M2 ORAL (16:38)
[2020-07-28 16:43] VITALS: BP 127/67
--- NOTE | 2020-07-29 15:33 | Cardiology Report ---
APPROVED REPORT EKG Measurement Heart [id number] [place] 144P [id number] <Conclusion> Normal sinus rhythm Indeterminate axis Inferior infarct, age undetermined Abnormal ECG
--- NOTE | 2020-07-29 17:13 | Diagnostic Imaging Report ---
Indication: Shortness of breath Technique: XRAY Chest 1v Comparison: 09/01/2019 Findings: Some scarring is again noted in the right upper lobe. No acute infiltrate. No pleural effusion or pneumothorax. Heart size is stable. Impression: No radiographic evidence of acute cardiopulmonary disease. Unchanged scarring in the right upper lobe.
== END 2020-07-28 16:45 | disposition home or self-care (01) ==
LOC: EMR 12:23
DX: N20.0 Calculus of kidney (principal); K52.9 Noninfective gastroenteritis and colitis, unspecified; I50.9 Heart failure, unspecified; I10 Essential (primary) hypertension; J45.909 Unspecified asthma, uncomplicated; Z88.1 Allergy status to other antibiotic agents; Z88.6 Allergy status to analgesic agent; Z88.8 Allergy status to other drugs, medicaments and biological substances; I70.90 Unspecified atherosclerosis
CPT/HCPCS: 36415; 71045; 74177; 80053; 81003; 83880; 84484; 85007; 85025; 85610; 85730; 86850; 86900; 86901; 93005; 96361; 96374; 99284; J2270; J7030; Q9965